=== PATIENT | female | born 1960 | race Caucasian/White ===

== ENCOUNTER → 2016-08-22 | Outpatient (CLI) | payer OTHER ==
[~2016-08-22] VITALS: Ht 149.9 cm; Wt 49.0 kg
[~2016-08-22] MED LIST: ACETAMINOPHEN325 M1 PO; ADVAIR 250-501 EACH INH; ALPRAZOLAM 0.50.5 M1 PO; ALPRAZOLAM 0.50.5 MG PO; ALPRAZOLAM ER1 MG PO; AMARYL4 MG PO; AMBIEN 10 MG TA10 MG PO; AMOXICILLIN875 MG PO; AMOXIL 875 MG875 M1 PO; ASA81BEC PO; AVELOX400 MG PO; AZOR 10-20 MG1 EACH PO; AZOR 5-40 MG T1 EACH PO; BACLOFEN 10 MG10 MG PO; BACLOFEN 10MG T10 M1 PO; BACLOFEN 10MG T10 MG PO; BACLOFEN PO; BAYER CHEWABLE81 MG PO; BENLYSTA120 MG IV; CADUET 5 MG PO; CEFTIN 250 MG250 MG PO; CELEXA 20 MG TA20 MG PO; CELEXA40 MG PO; CELLCEPT 250 M250 M1 PO; CELLCEPT500 MG PO; CHLORZOXAZONE500 MG PO; CIPRO500 MG PO; CIPROFLOXACIN500 M1 PO; CITALOPRAM PO; CITRATE OF MAG296 ML PO; CLONIDINE 2 IT; COLACE 100 MG100 MG PO; COMBIVENT PO; COMBIVENT RESPIM4 GM INH; CYMBALTA30 MG PO; DIFLUCAN100 MG PO; DILAUDID 4 MG TA4 M1 PO; DILAUDID IT; DILAUDID2 MG PO; ERYTHROMYCIN250 MG PO; FEVERALL120 MG PO; FLEXERIL PO; GLUCOPHAGE500 MG PO; INTRATHECAL MED; LASIX 20 MG TAB20 MG PO; LASIX 40 MG TAB40 M2 PO; LASIX 40 MG TAB40 MG PO; LEVEMIR; LEVEMIR SUBQ; LEVEMIR100 UNIT/1 SUBQ; LIDODERM 5%1 PATC1 TRANSDERM; LIORESAL 10 MG10 MG PO; LIPITOR40 MG PO; LIPITOR80 MG PO; MARINOL5 MG PO; METFORMIN HCL500 MG PO; METOLAZONE 2.52.5 MG; MOBIC7.5 MG PO; MORPHINE SULFAT15 M3 PO; MORPHINE SULFAT15 M4 PO; MS CONTIN60 MG PO; NEXIUM40 MG PO; NORTRIPTYLINE H50 M3 PO; NOVOLIN R100 UNIT/1 IJ; NOVOLOG100 UNIT/1 SUBQ; NYSTATIN 1100000 U/M SW&SWALLOW; ONDANSETRON HCL4 M2 PO; ONGLYZA5 MG PO; OPANA5 MG PO; OXCARBAZEPINE150 MG; OXYCODONE HCL 55 MG PO; OXYCODONE HCL15 MG PO; OXYCODONE PO; OXYCODONE-ACET1 EAC2 PO; PAMELOR50 MG PO; PAMELOR75 MG PO; PEPCID40 MG PO; PERCOCET 10-321 EAC1 PO; PERCOCET 10-321 EACH; PERCOCET 10-321 EACH PO; PLAVIX 75 MG TA75 M1 PO; PLAVIX 75 MG TA75 MG PO; PREDNISONE 10 M10 MG PO; PREDNISONE 20 M20 M1 PO; PREDNISONE 5 MG5 M1 PO; PREDNISONE50 MG PO; PRILOSEC40 MG PO; PROAIR HFA8.5 GM IH; PROAIR HFA8.5 GM INH; PROVENTIL INH; REGLAN 10 MG TA10 M1 PO; REMERON45 MG PO; RESTORIL15 MG PO; RESTORIL30 MG; RESTORIL30 MG PO; SYMBICORT160 MCG/4.; TAMIFLU75 MG PO; TOPAMAX 100 MG100 MG PO; TOPAMAX 25 MG T25 M1 PO; TOPIRAMATE 100100 MG PO; TRILEPTAL150 MG PO; TYLENOL325 MG PO; ULTRAM 50MG TAB50 MG PO; VANCOCIN 125 M125 M1 MC; VIIBRYD40 MG PO; VITAMIN D 5050000 I1; VITAMIN D 5050000 I1 PO; VITAMIN D350000 UNIT PO; VOLTAREN GEL 1100 G1 TOP; XANAX 0.5 MG0.5 MG PO; XANAX PO; XOPENEX0.63 MG/3 IH; ZANAFLEX4 MG PO; ZESTRIL10 MG PO; ZETIA10 MG PO; ZOFRAN 4 MG ORAL4 M1 DIS; ZOLOFT 50 MG TA50 M1 PO; hydromorphone INTRATHECA
--- NOTE | ~2016-08-22 | HPC ---
[facility] [place] [place] [address] PAIN MANAGEMENT CONSULTATION Name: MARCELLA ZAVALA Room #: REG DERECK Thorne#: [id number] Admission: 08/22/16 Attend Phys: Edilson Bhatti DO Discharge: Date of : 58 Report #: [id number] THIS REPORT FOR: //name// CC: Mynor Bhatti HISTORY OF PRESENT ILLNESS: The patient is a 55-year-old female well known to the pain clinic. She has been treated with symptomatic lumbar radiculopathy status post decompressive laminectomy, neuropathic pain component, requiring complex medication management for some time. She has had intrathecal pump in place long enough that had to be revised early June of 2016. Returns to the pain clinic today for intrathecal pump renewal and medication management. Again, she is now approximately 7 weeks status post intrathecal pump replacement. Incisions look good, but she is complaining of ongoing abdominal pain at the surgical site. Inspection of the surgical site is extremely unremarkable. There is no swelling, erythema or warmth. Subjectively a little tender to palpation. Vital signs are unremarkable. She is afebrile (modest hypertension 186/77, pulse 76, respirations 16). She is complaining of pain that is a "10" on a 0-10 visual analog scale. Again, chronic low back and abdomen. PHYSICAL EXAMINATION: Shows a 55-year-old female, BMI is 21.8 kilograms per meter squared. Vital signs as noted above. Again inspection of the intrathecal pump site is extremely unremarkable. No ballottable edema, no induration. The surgical incision looks good, no drainage. Has some axial back pain, though palpation to the back shows some tenderness, no discrete trigger points are noted. No muscle spasm is appreciable. The patient rises from a chair easily. Gait is tandem though antalgic. We reviewed the fact that opiate medications are being used to provide analgesia adequate to support activities of daily living, not attempting to achieve a specific pain score on the 0-10 Visual Analog Scale. The current opiate medications are providing sufficient analgesia to allow the patient to participate in activities of daily living. The patient is not exhibiting any aberrant behavior suggestive of drug diversion. The patient is not having any adverse reactions to medications. The patient is not suffering from daytime somnolence or mental acuity changes. The patient is managing opiate-induced constipation with appropriate qkao-rsj-fknmllu agents and dietary considerations. The patient was counseled on concern for caution with operating a motor vehicle while using opiate medications. A physical exam was performed and the patient's functional status was evaluated. All patients with back pain were advised against the bed rest greater than 4 days and were advised to return to normal activities. Pain score assessment was noted and the treatment plan was reviewed with the patient. All current medications, both prescribed and OTC were reviewed and reconciled on the electronic medical record. Tobacco screening was accomplished and smoking [address] [address] PAIN MANAGEMENT CONSULTATION Name: MARCELLA ZAVALA Room #: REG [facility] Mati#: [id number] Admission: 08/22/16 Attend Phys: Edilson Bhatti DO Discharge: Date of : 58 Report #: [id number] cessation was advised when indicated. BMI was noted and diet/exercise modification was recommended for all patients following outside normal parameters. I reviewed with the patient today their responsibilities to safeguard prescription medications, reviewed their responsibility to utilize medications only as prescribed by the physician. They are to seek and receive pain medications only from 1 physician group ( [facility]). They are to use 1 pharmacy and keep the clinic informed if they change pharmacies. Their responsibilities include making followup visits in a timely fashion and to avoid abrupt discontinuation of medication usage. Their responsibilities further include bringing their medications (bottles from the pharmacy with residual pills) to the visit for possible confirmation of pill counts and the patient understands it is their responsibility to submit to random drug screens to ensure both that the medications prescribed are present, and that no other controlled substances are present. All prescriptions provided today were generated electronically. The patient has been using oxycodone 10/325 one tablet 4-5 times a day, limit 135 tablets for 30 days. She did have a prescription generated 2 weeks ago. After discussion with the patient, they have elected to renew prescription, to be released in 2 weeks, we will see her back in 6 weeks. Today, we have elected to increase the intrathecal pump approximately 5% from constant infusion of 8 mg of hydromorphone to 8.4 mg (actually 8.389 mg of hydromorphone a day, clonidine 279.6 mcg a day and bupivacaine 8.39 mg a day). The new intrathecal pump refill date will be 10/25/2016. PROCEDURE NOTE: Intrathecal pump refill. PROCEDURE: After written informed consent was obtained, the patient placed in supine position. Skin overlying the pump was cleansed with ChloraPrep. Skin wheal with Xylocaine was raised. Using a [employer] refill kit, the pump was accessed, aspirated residual contents (approximately 2.9 mL) refilled with 20 mL of new injectate containing hydromorphone 30 mg per mL, clonidine 1000 mcg per mL, and bupivacaine 30 mg per mL. Frequent aspiration showed easy return of the injectate, site was visualized. No changes including swelling or erythema are noted. Discharged in good and stable condition. <ELECTRONICALLY SIGNED> By: Edilson Bhatti DO 08/25/16805 1522 [id number] Edilson Bhatti DO /manda
[2016-08-22 12:33] VITALS: BP 186/77
== END ==
LOC: PAIN 07:24
DX: M54.16 Radiculopathy, lumbar region (principal); G62.9 Polyneuropathy, unspecified; M54.89 Other dorsalgia; F17.210 Nicotine dependence, cigarettes, uncomplicated; F32.9 Major depressive disorder, single episode, unspecified

== ENCOUNTER → 2016-10-23 | Outpatient (CLI) | payer OTHER ==
[~2016-10-23] VITALS: Ht 149.9 cm; Wt 53.1 kg
[2016-10-23 11:08] VITALS: BP 208/78
== END | disposition home or self-care (01) ==
LOC: PAIN 06:41
DX: G89.4 Chronic pain syndrome (principal); M17.11 Unilateral primary osteoarthritis, right knee; M25.561 Pain in right knee; M25.552 Pain in left hip; M54.16 Radiculopathy, lumbar region; I10 Essential (primary) hypertension; F11.20 Opioid dependence, uncomplicated; F17.200 Nicotine dependence, unspecified, uncomplicated; F41.8 Other specified anxiety disorders; Z96.642 Presence of left artificial hip joint; Z98.890 Other specified postprocedural states; Z88.6 Allergy status to analgesic agent; Z79.899 Other long term (current) drug therapy

== ENCOUNTER → 2016-11-20 | Outpatient (CLI) | payer OTHER ==
[~2016-11-20] VITALS: Ht 149.9 cm; Wt 50.1 kg
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
[2016-11-20 11:18] VITALS: BP 197/81
== END | disposition home or self-care (01) ==
LOC: PAIN 07:45
DX: M54.16 Radiculopathy, lumbar region (principal); G89.4 Chronic pain syndrome; F11.20 Opioid dependence, uncomplicated; F17.200 Nicotine dependence, unspecified, uncomplicated; Z88.8 Allergy status to other drugs, medicaments and biological substances; Z79.899 Other long term (current) drug therapy; Z79.4 Long term (current) use of insulin; Z98.890 Other specified postprocedural states

== ENCOUNTER → 2016-12-25 | Outpatient (CLI) | payer OTHER ==
[~2016-12-25] VITALS: Ht 149.9 cm; Wt 48.4 kg
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
[2016-12-25 12:48] VITALS: BP 159/86
== END | disposition home or self-care (01) ==
LOC: PAIN 07:32
DX: G89.4 Chronic pain syndrome (principal); F17.200 Nicotine dependence, unspecified, uncomplicated

== ENCOUNTER → 2017-02-27 | Outpatient (CLI) | payer OTHER ==
[~2017-02-27] VITALS: Ht 149.9 cm; Wt 48.6 kg
[~2017-02-27] MED LIST changes: +FLAGYL500 MG PO; +VOLTAREN GEL 1100 G2 TOP
--- NOTE | ~2017-02-27 | HPC ---
[facility] [address] [place] [address] PAIN MANAGEMENT CONSULTATION Name: MARCELLA ZAVALA Room #: REG DERECK JacksonAgustin#: [id number] Admission: 02/27/17 Attend Phys: Jesus Gonzalez MD Discharge: Date of : 58 Report #: [id number] THIS REPORT FOR: //name// CC: Mynor Bhatti DO DATE OF SERVICE: 02/27/2017 Followup visit to manage intrathecal infusion pump with refill. The patient is a longstanding patient of Dr. Delacruz, who has an intrathecal pump. She had an emergency gallbladder surgery at [facility] and ended up at [facility]. She was intubated following surgery and was on the ventilator for several days until Dr. Pearl was able to extubate her. She left the hospital just today and is here today for a refill of her intrathecal infusion pump. She remains on oxygen at 2 L of nasal cannula. Her pain is across her low back and her left hip and right knee. She has benefitted from the intrathecal medication which is a combination of Dilaudid, clonidine and bupivacaine. Doses will remain the same. Her NELLIE is low and a refill is mandatory this Thursday, so that she does not go into withdrawal this weekend. Her complex past medical history is reviewed from the electronic medical record. Medication list also reviewed. No oral medication is required today. She is on prednisone. PHYSICAL EXAMINATION: She looks frail and sickly. Her blood pressure is 111/61, heart rate is 87, respirations 14, O2 sat is 96%. She is on 2 liters nasal cannula. We her from a bottle and saved some of that for transport home and she was placed on the hospital oxygen. I did not have her get up and move about in the clinic because she appears so frail. She is pleasant, alert and oriented. Does not appear to be overmedicated or have altered mental status. Her chest reveals distant breath stones. IMPRESSION: 1. Chronic low back pain with radiculopathy. She has a history of multiple laminectomies with decompression. 2. Osteoarthritis, right knee. 3. Chronic intractable pain and management of intrathecal infusion pump. RECOMMENDATIONS: I refilled her intrathecal infusion pump today and reprogrammed the same dose. [facility] [address] [place] [address] PAIN MANAGEMENT CONSULTATION Name: MARCELLA ZAVALA [id number] Admission: 02/27/17 Attend Phys: Jesus Gonzalez MD Discharge: Date of : 58 Report #: [id number] PROCEDURE: Skin was prepped with ChloraPrep. Skin anesthetized and a 22-gauge non-coring needle advanced in the pump. Old medication removed and discarded, 2.1 mL volume was expected and we got about 1.8. This was discarded per protocol. The pump was then refilled with 19.5 mL of Dilaudid 30 mg/mL, clonidine 1000 mcg/mL bupivacaine 30 mg/mL. A reprogramming session is Dilaudid 8.3, clonidine 279, bupivacaine 8.3. NELLIE is 72 months. Her low reservoir alarm now is scheduled for 04/30/2017. The patient will return to see Dr. Bhatti. <ELECTRONICALLY SIGNED> By: Jesus Gonzalez MD 03/11/17 1551 1541 1323 Jesus Gonzalez MD /nt
[2017-02-27 14:01] VITALS: BP 111/61
== END | disposition home or self-care (01) ==
LOC: PAIN 02-23 08:13
DX: Z45.1 Encounter for adjustment and management of infusion pump (principal); M54.16 Radiculopathy, lumbar region; G89.29 Other chronic pain; M17.11 Unilateral primary osteoarthritis, right knee; J44.9 Chronic obstructive pulmonary disease, unspecified; F17.200 Nicotine dependence, unspecified, uncomplicated; Z79.891 Long term (current) use of opiate analgesic; Z98.890 Other specified postprocedural states; Z88.6 Allergy status to analgesic agent; Z79.4 Long term (current) use of insulin; Z79.899 Other long term (current) drug therapy; Z90.49 Acquired absence of other specified parts of digestive tract

== ENCOUNTER → 2017-04-30 | Outpatient (CLI) | payer OTHER ==
[~2017-04-30] VITALS: Ht 149.9 cm; Wt 45.4 kg
[~2017-04-30] MED LIST changes: +LEXAPRO 10 MG T10 M2 PO; +REQUIP0.5 MG PO
--- NOTE | ~2017-04-30 | HPC ---
[facility] [place] [address] PAIN MANAGEMENT CONSULTATION Name: MARCELLA ZAVALA Room #: REG DERECK Thorne#: [id number] Admission: 04/30/17 Attend Phys: Edilson Bhatti, Discharge: Date of : 58 Report #: [id number] THIS REPORT FOR: //name// CC: Mynor Bhatti DATE OF SERVICE: 04/30/2017 The patient is a 56-year-old female being treated for lumbar radiculopathy status post decompressive laminectomy, osteoarthritis affecting knees, right greater than left, chronic pain syndrome requiring high risk complex medication management with an intrathecal pump. Presents to pain clinic today for intrathecal pump refill. She was also seen for a complex medication management. She uses Percocet 10/325 one tablet 4-5 times a day, limit 135 tablets for 30 days. She returns to pain clinic today. She had been quite sick, she was actually seen for last refill 02/27/2017 by my partner, Dr. Jesus Gonzalez. She had prior been in the hospital requiring intubation. She still remains fairly frail, but is improving. She states over the holidays, she spent a good deal of time with her grandchildren and played pool with her granddaughter and is being a little more functional overall. Today, intrathecal pump was refilled. No programming changes were made. We reviewed the fact that opiate medications are being used to provide analgesia adequate to support activities of daily living, not attempting to achieve a specific pain score on the 0-10 Visual Analog Scale. The current opiate medications are providing sufficient analgesia to allow the patient to participate in activities of daily living. The patient is not exhibiting any aberrant behavior suggestive of drug diversion. The patient is not having any adverse reactions to medications. The patient is not suffering from daytime somnolence or mental acuity changes. The patient is managing opiate-induced constipation with appropriate invz-gic-gvfhaep agents and dietary considerations. The patient was counseled on concern for caution with operating a motor vehicle while using opiate medications. A physical exam was performed and the patient's functional status was evaluated. All patients with back pain were advised against the bed rest greater than 4 days and were advised to return to normal activities. Pain score assessment was noted and the treatment plan was reviewed with the patient. All current medications, both prescribed and OTC were reviewed and reconciled on the electronic medical record. Tobacco screening was accomplished and smoking cessation was advised when indicated. BMI was noted and diet/exercise modification was recommended for all patients following outside normal parameters. I reviewed with the patient [place] [address] PAIN MANAGEMENT CONSULTATION Name: MARCELLA ZAVALA Room #: REG DERECK Thorne#: [id number] Admission: 04/30/17 Attend Phys: Edilson Bhatti DO Discharge: Date of : 58 Report #: [id number] prescription medications, reviewed their responsibility to utilize medications only as prescribed by the physician. They are to seek and receive pain medications only from 1 physician group ([facility]). They are to use 1 pharmacy and keep the clinic informed if they change pharmacies. Their responsibilities include making followup visits in a timely fashion and to avoid abrupt discontinuation of medication usage. Their responsibilities further include bringing their medications (bottles from the pharmacy with residual pills) to the visit for possible confirmation of pill counts and the patient understands it is their responsibility to submit to random drug screens to ensure both that the medications prescribed are present, and that no other controlled substances are present. All prescriptions provided today were generated electronically. PHYSICAL EXAMINATION: Notes a frail 56-year-old female, BMI is approximately 19 kilograms per meter squared. Alert and oriented to person, place and time, judged to be a reasonable historian. Lower extremity strength is diminished, but symmetric. She is overall deconditioned, but her spirits are up and she appears a little more alert and oriented and positive she has in some time. ASSESSMENT: Symptomatic lumbar radiculopathy status post decompressive laminectomy, osteoarthritis affecting right greater than left knee, axial back pain, chronic pain syndrome requiring high risk complex medication management. RECOMMENDATIONS: Renew Percocet 10/325 one tablet 4-5 times a day, limit 135 tablets for 30 days. I have taken the liberty of writing for 2 months of current medication. PROCEDURE NOTE: RN refill of ITP. DESCRIPTION OF PROCEDURE: After written informed consent was obtained, the area overlying the pump was cleansed with ChloraPrep. Skin wheal with Xylocaine was raised. A [employer] refill kit was used to access the pump of residual contents and refill. A 20 mL of new injectate, hydromorphone 30 mg per mL, bupivacaine 30 mg per mL and clonidine 1000 mcg per mL. The pump was reprogrammed to deliver the baseline infusate at 8.3 mg of both hydromorphone and bupivacaine along with 279 mcg of clonidine a day. Frequent aspiration showed easy return of injectate. Needle was removed, area was cleansed, Band-Aids applied. The patient monitored for an appropriate period of time, discharged in good and stable condition. RECOMMENDATION: Follow up in 2 months for medication management. Pump refill is in approximately 90 days. <ELECTRONICALLY SIGNED> By: Edilson Bhatti DO 05/01/17 0810 1429 1813 Edilson Bhatti DO /manda
[2017-04-30 12:57] VITALS: BP 156/69
== END | disposition home or self-care (01) ==
LOC: PAIN 07:10
DX: M54.16 Radiculopathy, lumbar region (principal); M17.0 Bilateral primary osteoarthritis of knee; G89.4 Chronic pain syndrome; Z98.890 Other specified postprocedural states; Z79.891 Long term (current) use of opiate analgesic; Z87.891 Personal history of nicotine dependence; Z88.6 Allergy status to analgesic agent; Z79.4 Long term (current) use of insulin; Z79.899 Other long term (current) drug therapy

== ENCOUNTER → 2017-07-03 | Outpatient (CLI) | payer OTHER ==
[~2017-07-03] VITALS: Ht 149.9 cm; Wt 49.0 kg
--- NOTE | ~2017-07-03 | HPC ---
[facility] [place] [address] PAIN MANAGEMENT CONSULTATION Name: MARCELLA ZAVALA Room #: REG GARFIELDMeena Thorne#: [id number] Admission: 07/03/17 Attend Phys: Edilson Bhatti DO Discharge: Date of : 58 Report #: [id number] THIS REPORT FOR: //name// CC: Mynor Bhatti HISTORY OF PRESENT ILLNESS: The patient is a 56-year-old female, long known to pain clinic, being treated for lumbar radiculopathy status post decompressive laminectomy, chronic pain syndrome requiring complex medication management, right knee DJD and intrathecal pump. The patient is a complex medication management patient and has an opiate consent to treat contract. She was last seen in the pain clinic on 04/30/2017. Pump was refilled at that time. She returns to pain clinic today. She is having increasing pain in her right knee, does have a little ballottable edema there. I had prior done arthrocentesis of that knee. Today, she presents to pain clinic for intrathecal pump refill. We also had an office visit reviewing chronic pain management issues and the recurrent right knee pain. We reviewed the fact that opiate medications are being used to provide analgesia adequate to support activities of daily living, not attempting to achieve a specific pain score on the 0-10 Visual Analog Scale. The current opiate medications are providing sufficient analgesia to allow the patient to participate in activities of daily living. The patient is not exhibiting any aberrant behavior suggestive of drug diversion. The patient is not having any adverse reactions to medications. The patient is not suffering from daytime somnolence or mental acuity changes. The patient is managing opiate-induced constipation with appropriate lqxm-tvd-jcxwhuy agents and dietary considerations. The patient was counseled on concern for caution with operating a motor vehicle while using opiate medications. A physical exam was performed and the patient's functional status was evaluated. All patients with back pain were advised against the bed rest greater than 4 days and were advised to return to normal activities. Pain score assessment was noted and the treatment plan was reviewed with the patient. All current medications, both prescribed and OTC were reviewed and reconciled on the electronic medical record. Tobacco screening was accomplished and smoking cessation was advised when indicated. BMI was noted and diet/exercise modification was recommended for all patients following outside normal parameters. I reviewed with the patient today their responsibilities to safeguard prescription medications, reviewed their responsibility to utilize medications [address] [address] PAIN MANAGEMENT CONSULTATION Name: MARCELLA ZAVALAN Room #: REG DERECK Thorne#: [id number] Admission: 07/03/17 Attend Phys: Edilson Bhatti DO Discharge: Date of : 58 Report #: [id number] only as prescribed by the physician. They are to seek and receive pain medications only from 1 physician group ([facility]). They are to use 1 pharmacy and keep the clinic informed if they change pharmacies. Their responsibilities include making followup visits in a timely fashion and to avoid abrupt discontinuation of medication usage. Their responsibilities further include bringing their medications (bottles from the pharmacy with residual pills) to the visit for possible confirmation of pill counts and the patient understands it is their responsibility to submit to random drug screens to ensure both that the medications prescribed are present, and that no other controlled substances are present. All prescriptions provided today were generated electronically. The patient notes pain score is 9 on a VAS. She uses a cane for balance, has not fallen in the last 3 months. Her opiate consent to treat contract was signed on 10/15/2015. She scores moderate risk on the opiate risk assessment tool. She screened positive for THC 6 months ago. She was counseled regarding same. Functional assessment tool score is 43/70. The patient has resumed smoking, she had quit for several years. She was counseled regarding this as well. She rises from the chair using armrest, markedly antalgic gait. There is a little ballottable edema in the right knee. She is having little tenderness at the intrathecal pump site, although she is wearing fairly low-waist trousers that rub across the site. I suggested she try a different garment that might not have elastic over the pump proper. ASSESSMENT: 1. Symptomatic right knee degenerative joint disease with ballotable edema. 2. Axial back pain requiring complex medication management, lumbar radiculopathy status post decompressive laminectomy, chronic pain syndrome requiring complex medication management. RECOMMENDATION: Renew Percocet 10/325 one tablet 4-5 times a day, limit 135 tablets for 30 days. Follow up in 2 months for reevaluation. We will get a buccal swab at next visit. It appears that there has not been a followup since the last one. She was counseled regarding marijuana use, it should be negative. INTRATHECAL PUMP REFILL: The pump was refilled by the RN today using our protocol and the [employer] refill kit. Pump was refilled with 20 mL of injectate with bupivacaine 30 mg per mL, clonidine 1000 mcg per mL, and hydromorphone 30 mg per mL. Infusion rate is 8.389 mg of Dilaudid a day, 279.6 mcg of clonidine and 8.389 mg of bupivacaine, a day. Her new reservoir date is now 09/05/2017. This was done under my direct supervision. The pump was reprogrammed to deliver the current rate. We will plan on seeing the patient [address] [address] PAIN MANAGEMENT CONSULTATION Name: LUCASMARCELLA JERRYN Room #: [facility] DERECK Thorne#: [id number] Admission: 07/03/17 Attend Phys: Edilson Bhatti DO Discharge: Date of : 58 Report #: [id number] next week for right knee arthroscopy arthrocentesis if pain continues to be problematic. <ELECTRONICALLY SIGNED> By: Edilson Bhatti DO 07/09/17 0938 1515 03 Edilson Bhatti DO /nt
[2017-07-03 12:49] VITALS: BP 183/83
== END | disposition home or self-care (01) ==
LOC: PAIN 07:08
DX: Z45.1 Encounter for adjustment and management of infusion pump (principal); Z98.890 Other specified postprocedural states; G89.4 Chronic pain syndrome; M17.0 Bilateral primary osteoarthritis of knee; M54.16 Radiculopathy, lumbar region; Z79.899 Other long term (current) drug therapy

== ENCOUNTER → 2017-09-03 | Outpatient (CLI) | payer OTHER ==
[~2017-09-03] VITALS: Ht 149.9 cm; Wt 51.7 kg
--- NOTE | ~2017-09-03 | HPC ---
[facility] [address] [place] [place] [address] PAIN MANAGEMENT CONSULTATION Name: MARCELLA ZAVALA Room #: REG DERECK Thorne#: [id number] Admission: 09/03/17 Attend Phys: Edilson Bhatti, DO Discharge: Date of : 58 Report #: [id number] THIS REPORT FOR: //name// CC: Mynor Bhatti DATE OF SERVICE: 09/03/2017 The patient is a very pleasant 56-year-old female being treated for chronic pain syndrome, lumbar radiculopathy, status post decompressive laminectomy, DJD affecting multiple joints including knees and hips (status post left total knee arthroplasty) requiring complex medication management and intrathecal pump management. Last seen in pain clinic 07/03/2017. Continued on her intrathecal pump, which delivers hydromorphone 8.39 mg, clonidine 276 mcg and bupivacaine 8.39 mg per day. At last visit, she did have some ballottable edema in the right knee. We continued some topical Voltaren gel and p.r.n. Percocet 10/325 typically 1 tablet 4-5 times a day, limit 135 tablets for 20 days. The patient returns to pain clinic today noting pain is a "10" on VAS. This is the usual score for the patient. She continues to use some tobacco products, was counseled regarding same. Fortunately, her knee is actually significantly improved, edema is fairly minimal here. She does have some pain in the right hip. Status post left total hip arthroplasty. She states her right hip is "bone on bone." PHYSICAL EXAMINATION: Vital signs as noted in the EMR. Rises from chair using armrest, modestly antalgic gait, though generally tandem. Again, really negligible edema in the bilateral knees. Passive rotation of the right hip has nominal pain with rotation. Does have some pain over the trochanteric bursa. With no discrete trigger points noted and concern for this 56-year-old female with some limb cachexia (she does have some centripetal obesity), postmenopausal chronic smoker with osteoporosis, I told her I would be very cautious about further steroid injections. Suggested she follow up with the orthopedist who had done her contralateral (left) total hip arthroplasty to evaluate the right hip. We reviewed the fact that opiate medications are being used to provide analgesia adequate to support activities of daily living, not attempting to achieve a specific pain score on the 0-10 Visual Analog Scale. The current opiate medications are providing sufficient analgesia to allow the patient to participate in activities of daily living. The patient is not exhibiting any aberrant behavior suggestive of drug diversion. The patient is not having any adverse reactions to medications. The patient is not suffering from daytime somnolence or mental acuity changes. The [place] [address] PAIN MANAGEMENT CONSULTATION Name: LUCASMARCELLA ERICA Room #: REG DERECK Thorne#: [id number] Admission: 09/03/17 Attend Phys: Edilson Bhatti DO Discharge: Date of : 58 Report #: [id number] constipation with appropriate tbsg-vmz-doesdss agents and dietary considerations. The patient was counseled on concern for caution with operating a motor vehicle while using opiate medications. A physical exam was performed and the patient's functional status was evaluated. All patients with back pain were advised against the bed rest greater than 4 days and were advised to return to normal activities. Pain score assessment was noted and the treatment plan was reviewed with the patient. All current medications, both prescribed and OTC were reviewed and reconciled on the electronic medical record. Tobacco screening was accomplished and smoking cessation was advised when indicated. BMI was noted and diet/exercise modification was recommended for all patients following outside normal parameters. I reviewed with the patient today their responsibilities to safeguard prescription medications, reviewed their responsibility to utilize medications only as prescribed by the physician. They are to seek and receive pain medications only from 1 physician group ( [facility]). They are to use 1 pharmacy and keep the clinic informed if they change pharmacies. Their responsibilities include making followup visits in a timely fashion and to avoid abrupt discontinuation of medication usage. Their responsibilities further include bringing their medications (bottles from the pharmacy with residual pills) to the visit for possible confirmation of pill counts and the patient understands it is their responsibility to submit to random drug screens to ensure both that the medications prescribed are present, and that no other controlled substances are present. All prescriptions provided today were generated electronically. Today, I did renew the patient's Percocet 10/325 directions 1 tablet 4-5 times a day, limit 135 tablets for 30 days. I gave her 2 prescriptions, 1 released today, 1 released in 4 weeks. Intrathecal pump refill. Pump was refilled by nurse, Carmenza Montgomery RN under my direction using sterile procedure and the [employer] refill kit. The pump was refilled with 20 mL of injectate containing hydromorphone, clonidine and bupivacaine. Her new refill date is 11/23/2017. No change was made in the infusate rate. The patient was discharged in good and stable condition. Follow up as needed for medication management. Given that she is one of the few intrathecal pump patients that I have, I will have her either follow up with Dr. Jesus Gonzalez or Dr. Nazario Steel for ongoing care of the intrathecal pump. [address] [address] PAIN MANAGEMENT CONSULTATION Name: MARCELLA ZAVALA Room #: REG [facility].#: [id number] Admission: 09/03/17 Attend Phys: Edilson Bhatti DO Discharge: Date of : 58 Report #: [id number] Discharged in good and stable condition. <ELECTRONICALLY SIGNED> By: Edilson Bhatti DO 09/07/17 0711 1320 55 Edilson Bhatti DO /nt
[2017-09-03 12:42] VITALS: BP 140/81
== END | disposition home or self-care (01) ==
LOC: PAIN 05:41
DX: Z45.1 Encounter for adjustment and management of infusion pump (principal); G89.4 Chronic pain syndrome; M54.16 Radiculopathy, lumbar region; M19.90 Unspecified osteoarthritis, unspecified site; F17.210 Nicotine dependence, cigarettes, uncomplicated; Z98.890 Other specified postprocedural states; Z79.891 Long term (current) use of opiate analgesic; Z88.8 Allergy status to other drugs, medicaments and biological substances; Z79.899 Other long term (current) drug therapy; Z79.4 Long term (current) use of insulin

== ENCOUNTER → 2017-11-06 | Outpatient (CLI) | payer OTHER ==
[~2017-11-06] VITALS: Ht 149.9 cm; Wt 48.8 kg
--- NOTE | ~2017-11-06 | HPC ---
[facility] [place] [address] PAIN MANAGEMENT CONSULTATION Name: MARCELLA ZAVALA Room #: REG DERECK Mati#: [id number] Admission: 11/06/17 Attend Phys: Edilson Bhatti DO Discharge: Date of : 58 Report #: [id number] THIS REPORT FOR: //name// CC: Mynor Bhatti HISTORY OF PRESENT ILLNESS: The patient is a pleasant 56-year-old female, long treated for chronic pain syndrome, status post decompressive lumbar laminectomy, DJD affecting bilateral hips and knees, status post left total knee arthroplasty, requiring complex medication management and intrathecal pump. The patient was last seen in the pain clinic 09/03/2017. She returns to pain clinic today for scheduled intrathecal pump refill. This was accomplished by nurse Jolley. The patient is requesting renewal of her p.r.n. medication. She used to take Percocet 10/325 one tablet 4-5 times a day, limit 135 tablets for 30 days. Today, she notes subjective pain score 9 on a VAS, which is fairly consistent for the patient. She complains of pain, back, right hip, and knee. Notes "everything" exacerbates pain. The patient continues to smoke, she is down to about half a pack a day. She was counseled regarding same. She is fairly sedentary. Weight is stable, BMI is 21.7 kg/m2. Vital signs are otherwise stable. Alert and oriented to person, place and time, judged to be a reasonable historian. Rises from chair using armrest, modestly antalgic gait, diffuse tenderness across the low back. Occasionally uses a cane for balance. She has not fallen in the last months. ASSESSMENT: Symptomatic chronic axial back pain, lumbar radiculopathy, status post decompressive laminectomy, failed back syndrome, osteoarthritis affecting hips and knees, requiring intrathecal pump management and chronic pain management. RECOMMENDATION: Renew Percocet , limit 135 tablets for 30 days. I have taken the liberty of writing for 2 months of medication. Intrathecal pump refill by RN, supervised by myself. Pump was refilled in a sterile fashion using the usual protocol by the pain clinic nurse. Refilled with 20 mL of new injectate, containing bupivacaine 30 mg per mL, hydromorphone 30 mg per mL, clonidine 1000 mcg per mL. Pump was reprogrammed to deliver current rate of 8.389 mg of Dilaudid a day, 8.389 mg of [facility] [address] [place] [address] PAIN MANAGEMENT CONSULTATION Name: MARCELLA ZAVALA Room #: REG CL Mati#: [id number] Admission: 11/06/17 Attend Phys: Edilson Bhatti DO Discharge: Date of : 58 Report #: [id number] bupivacaine a day, and 279.6 mcg of clonidine a day. New refill date is 01/09/2018. Discharged in good and stable condition. <ELECTRONICALLY SIGNED> By: Edilson Bhatti DO 11/08/17 1135 1453 [id number] Edilson Bhatti DO /nt
[2017-11-06 12:46] VITALS: BP 138/76
== END | disposition home or self-care (01) ==
LOC: PAIN 08:33
DX: Z45.1 Encounter for adjustment and management of infusion pump (principal); G89.29 Other chronic pain; M54.16 Radiculopathy, lumbar region; Z98.890 Other specified postprocedural states; M16.0 Bilateral primary osteoarthritis of hip; M17.0 Bilateral primary osteoarthritis of knee; Z79.899 Other long term (current) drug therapy; F17.210 Nicotine dependence, cigarettes, uncomplicated

== ENCOUNTER → 2018-03-01 | Outpatient (CLI) | payer OTHER ==
[~2018-03-01] VITALS: Ht 149.9 cm; Wt 48.9 kg
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
[2018-03-01 14:24] VITALS: BP 148/82
== END | disposition home or self-care (01) ==
LOC: PAIN 06:59
DX: Z45.1 Encounter for adjustment and management of infusion pump (principal); G89.29 Other chronic pain; M96.1 Postlaminectomy syndrome, not elsewhere classified; M17.10 Unilateral primary osteoarthritis, unspecified knee; M32.9 Systemic lupus erythematosus, unspecified; M54.16 Radiculopathy, lumbar region; F17.210 Nicotine dependence, cigarettes, uncomplicated; Z88.8 Allergy status to other drugs, medicaments and biological substances; Z79.899 Other long term (current) drug therapy; Z98.890 Other specified postprocedural states; Z79.84 Long term (current) use of oral hypoglycemic drugs; Z79.4 Long term (current) use of insulin

== ENCOUNTER → 2018-04-30 | Outpatient (CLI) | payer OTHER ==
[~2018-04-30] VITALS: Ht 149.9 cm; Wt 54.7 kg
--- NOTE | ~2018-04-30 | HPC ---
[facility] [address] [place] [address] PAIN MANAGEMENT CONSULTATION Name: MARCELLA ZAVALA Room #: PRE [facility] M.R.#: [id number] Admission: Attend Phys: Juaquin Guthrie MD Discharge: Date of : 58 Report #: [id number] THIS REPORT FOR: //name// CC: Mynor Guthrie DATE OF SERVICE: 04/30/2018 CHIEF COMPLAINT: "I have run out of my medications I have got 4 tablets left." HISTORY: The patient is a 57-year-old female who has been followed in the pain clinic because of chronic pain. She suffered from lumbar radiculopathy and is being managed and helped with pain control using intrathecal pump. She has somewhat complicated history. The patient called today indicating that she is out of medications. She only has four tablets left. Her next scheduled appointment is about 1 week away. The patient is on a regimen of intrathecal medications. ALLERGIES: ASPIRIN. MEDICATIONS: Oxycodone 10/325 one p.o. 4 tablets daily, Lexapro 10 mg daily, Requip at bedtime, Voltaren gel, Glucophage 100 mg b.i.d., insulin, various sliding scale dose, Symbicort daily, Zetia 10 mg, albuterol as needed, lisinopril 10 mg at bedtime, Pamelor at bedtime, Combivent inhaler daily, Xanax 0.5 mg 4 times daily, Prilosec 4 mg, Ambien 10 mg at bedtime, Lipitor 80 mg, prednisone 10 mg daily. PAIN CLINIC ASSESSMENT/PQRS: 1. History of osteoarthritis with left hip replacement. The patient has some right hip problems as well. The patient states she has been treated for rheumatoid arthritis or by Dr. Cesar. Has systemic lupus, erythematosus. 2. Vital signs: Blood pressure 171/79, heart rate 100, respiratory rate 16, room air saturation 95%. 3. Pain intensity /10. 4. Fall risk. The patient has not fallen in the last 3 months. 5. Blood thinner. The patient is not on a blood thinning medication. 6. Hypertension. The patient has been treated for hypertension. 7. Opioids greater than 6 weeks. The patient is receiving medication from the Pain Clinic for her medication. 8. Risk assessment tool for moderate for opioid use. 9. Functional assessment tool . 10. Recreational drug use. The patient denies use of recreational drugs. 11. Tobacco: The patient smokes 3/4 pack of cigarettes per day, has smoked for last 36 years. We discussed the risks and benefits of tobacco use. We discussed smoking cessation. 12. Alcohol. The patient denies use of alcoholic beverages. [address] [address] PAIN MANAGEMENT CONSULTATION Name: MARCELLA ZAVALA Room #: PRE DERECK Thorne#: [id number] Admission: Attend Phys: Juaquin Guthrie MD Discharge: Date of : 58 Report #: [id number] PHYSICAL EXAMINATION: GENERAL: The patient is a white female. Appears somewhat older than her stated age. She is alert and oriented x 3. Affect is appropriate. Speech is fluent. HEENT: Normocephalic, atraumatic. Extraocular eye muscles intact. Sclerae nonicteric. Mucous membranes moist. NECK: Without adenopathy. EXTREMITIES: Upper extremity muscle strength 4+/5 for the upper extremity. Lower extremity muscle strength is judged to be 4+/5 for the major muscle groups in the lower extremity. The patient complains of pain in her right and left hip. ABDOMEN: Nontender. IMPRESSION: 1. Chronic pain treated with complex medical regimen. 2. The patient is followed by Psychiatry 3. History of intrathecal pump. 4. Osteoarthritis affecting the joints, hips and knees. 5. Systemic lupus erythematosus. 6. Management of medications, which are high risk. RECOMMENDATIONS: We discussed treatment options with the patient. We had the patient again reviewed the opioid contract. We explained to the patient that she should read and we did outline section 6 this can entails when medications can be written. The reason for rewriting the medications. I explained to the patient that it seems in the past. She has had a number of times where she ran out of her medications and we needed to refill them. We asked that she stay ahead of the curve. If she feels that her medications are about to run out she should inform the Pain Clinic prior to an emergent situation and developing. We explained to her that if she continued to have problems keeping up with her medications. It might be that these medications are not a good way to treat her over the long-term. A script for her medications 7 days' worth of Percocet 10/325 one p.o. q.i.d. has been written. The patient will follow up in the near future with Dr. Jesus Gonzalez. By: [id number] 0179 Juaquin Guthrie MD /nt
--- NOTE | ~2018-04-30 | HPC ---
[facility] [address] [address] PAIN MANAGEMENT CONSULTATION Name: MARCELLA ZAVALA Room #: REG DERECK JacksonAgustin#: [id number] Admission: 04/30/18 Attend Phys: Juaquin Guthrie MD Discharge: Date of : 58 Report #: [id number] THIS REPORT FOR: //name// CC: Mynor Guthrie DATE OF SERVICE: 05/06/2018 CHIEF COMPLAINT: Followup visit for chronic back pain, hip pain and diffuse osteoarthritis. Post-laminectomy syndrome, failed back syndrome. Management of intrathecal infusion pump and high risk medications. The patient returns to pain clinic today. Apparently, there was some confusion about her medication. She was made to come to the clinic on 04/30/2018 and was given a short bridge prescription. She is on an opioid agreement. We provided with monthly medication in addition to her intrathecal infusion pump. She is allowed 135 oxycodone 10/325 tablets taking somewhere between 4 and 5 tablets a day. This has been well established for many years by Dr. Bhatti and she has shown no misuse or abuse. We have done buccal drug testing and have routinely checked the prescription drug monitoring programs to make sure that there have been no unexpected entries. In the recent opioid crisis, there is much more restriction on the provisional medications and patients must be exceptionally cautious with their medication to make sure that there is no diversion. I discussed this with her. I reviewed her records dating back to 2008 when she was first referred to our clinic by Dr. Cesar. This was before she had her intrathecal infusion pump. At that time, she was on 240 morphine milligram equivalents. She has now reduced that by 75% to still 50-60 MME. This is relatively high dose and would like to continue to lower her reliance on oral opioids if possible. She is quite debilitated. She has COPD and is on oxygen. She continues to smoke as does her . They both admit that smoking has aged them and the patient, physician and staff all agreed that they appear much older than their stated age. She is only 57. Their activities are limited by their severe chronic illnesses. MEDICATIONS: Reviewed and reconciled. She is on Lexapro, Requip, Voltaren gel, Glucophage, insulin, Symbicort, Zetia, albuterol, lisinopril, Pamelor, Combivent, Prilosec, Ambien, Lipitor, prednisone and she has been on alprazolam as well chronically for anxiety. We have discussed the interaction between opioids, benzodiazepines which she has been able to tolerate. There have been [address] [address] PAIN MANAGEMENT CONSULTATION Name: MARCELLA ZAVALA Room #: REG [facility] Mati#: [id number] Admission: 04/30/18 Attend Phys: Juaquin Guthrie MD Discharge: Date of : 58 Report #: [id number] no overdose events that we are aware of. PHYSICAL EXAMINATION: GENERAL: She is a 57-year-old who appears much older than her stated age. She has cushingoid features from steroid use. VITAL SIGNS: Her blood pressure 152/66, heart rate 108, respirations 14, O2 sats 97 on room air. BMI is 24.2. She can move independently from sitting to standing position, walks with antalgic features. CHEST: Demonstrates distant breath sounds. CARDIAC: Rhythm was regular. ABDOMEN: Soft. EXTREMITIES: Examination of the spine reveals scar and tenderness. Pump is in the left lower quadrant, mildly tender. Legs are free of edema. Peripheral pulses are not palpable. IMPRESSION: 1. Chronic intractable pain with multiple pain generators including low back, multiple joint osteoarthritis and debility. 2. Chronic obstructive pulmonary disease. 3. Hypertension. 4. Failed back syndrome. 5. Coronary artery disease. 6. Peripheral vascular disease. 7. History of anxiety and depression, on medication. 8. Rheumatoid arthritis. 9. Fibromyalgia. 10. Management of intrathecal infusion pump. PROCEDURE: Refill and reprogramming of intrathecal pump. Skin was prepped with ChloraPrep. Skin anesthetized and a 22-gauge non-coring needle advanced in the pump and old medication removed and discarded per protocol. Pump was refilled with hydromorphone, bupivacaine, clonidine combination. Her discharge dose will be hydromorphone 7.8, clonidine 260, bupivacaine 7.8 mg. Her NELLIE is 59 months. Pump refill will be scheduled for 07/12/2018. I would like to see her back by 07/04/2018. We are managing her medications with 2-month intervals. Buccal testing was performed today and we will review the results of that testing at her next visit. She promised me that she safeguards her medication carefully. [address] [address] PAIN MANAGEMENT CONSULTATION Name: MARCELLA ZAVALA Room #: REG Meena Thorne#: [id number] Admission: 04/30/18 Attend Phys: Juaquin Guthrie MD Discharge: Date of : 58 Report #: [id number] Complex medication followup visit along with pump refill and reprogramming of intrathecal pump. By: [id number] Jesus Gonzalez MD /nt
[2018-04-30 14:20] VITALS: BP 171/79
--- NOTE | 2018-04-30 14:22 | NUR ---
Pain Clinic Assessment: 1. History of Osteoarthritis: Right Lower Extremity History of Rheumatoid Arthritis: N 2. Height: 4 ft. 11 in. 149.9 cm. Weight: 120.0 lb. oz. 54.432 kg. Patient's BMI: 24.2 3. Vital Signs: BP: 171/79 Pulse: 100 Resp: 16 Temp: 02 Sat: 95 ECG Mon: 4. Pain Intensity: 10 5. Fall Risk: Dizziness: N Needs help standing or walking: N Fallen in the last 3 months: Y Fall risk comments: 6. Patient on Blood Thinner: None 7. History of Hypertension: Y 8. Opioid Therapy greater than 6 weeks: Y Opiate Contract Signed: 10/15/15 9. Risk Assessment Tool Provided: 4-MOD RISK 10. Functional Assessment Tool: 11. Recreational Drug Use: Never Drug Type: Tobacco Use: Current Every Day Smoker Tobacco Type: Amount or Packs/day: How Many Years: Alcohol Use: No Frequency: Quant:
[2018-05-06 13:05] VITALS: BP 152/66
== END ==
LOC: PAIN 09:00
DX: M54.16 Radiculopathy, lumbar region (principal); G89.29 Other chronic pain; M96.1 Postlaminectomy syndrome, not elsewhere classified; M17.0 Bilateral primary osteoarthritis of knee; M16.0 Bilateral primary osteoarthritis of hip; M06.9 Rheumatoid arthritis, unspecified; M79.7 Fibromyalgia; M32.9 Systemic lupus erythematosus, unspecified; J44.9 Chronic obstructive pulmonary disease, unspecified; I10 Essential (primary) hypertension; I25.10 Atherosclerotic heart disease of native coronary artery without angina pectoris; I73.9 Peripheral vascular disease, unspecified; F32.9 Major depressive disorder, single episode, unspecified; F41.9 Anxiety disorder, unspecified; Z79.899 Other long term (current) drug therapy; Z97.8 Presence of other specified devices

== ENCOUNTER → 2018-05-06 | Outpatient (CLI) | payer OTHER ==
[~2018-05-06] VITALS: Ht 149.9 cm; Wt 54.4 kg
[2018-05-06 13:38] VITALS: BP 152/66
--- NOTE | 2018-05-06 13:41 | NUR ---
Pain Clinic Assessment: 1. History of Osteoarthritis: Right Lower Extremity History of Rheumatoid Arthritis: N 2. Height: 4 ft. 11 in. 149.9 cm. Weight: 120.0 lb. oz. 54.432 kg. Patient's BMI: 24.2 3. Vital Signs: BP: 152/66 Pulse: 108 Resp: 14 Temp: 02 Sat: 97 ECG Mon: 4. Pain Intensity: 9 5. Fall Risk: Dizziness: N Needs help standing or walking: N Fallen in the last 3 months: N Fall risk comments: 6. Patient on Blood Thinner: None 7. History of Hypertension: Y 8. Opioid Therapy greater than 6 weeks: Y Opiate Contract Signed: 10/15/15 9. Risk Assessment Tool Provided: 4-MOD RISK 10. Functional Assessment Tool: 11. Recreational Drug Use: Never Drug Type: Tobacco Use: Current Every Day Smoker Tobacco Type: Amount or Packs/day: How Many Years: Alcohol Use: No Frequency: Quant:
== END | disposition home or self-care (01) ==
LOC: PAIN 13:29
DX: Z45.1 Encounter for adjustment and management of infusion pump (principal); F17.210 Nicotine dependence, cigarettes, uncomplicated; Z88.8 Allergy status to other drugs, medicaments and biological substances; Z79.899 Other long term (current) drug therapy; Z79.84 Long term (current) use of oral hypoglycemic drugs

== ENCOUNTER 2018-06-21 14:29 | Emergency (ER) | payer OTHER ==
[~2018-06-21] VITALS: Ht 121.9 cm; Wt 54.4 kg
[~2018-06-21 14:29] MED LIST changes: -LEVEMIR
[2018-06-21 14:32] VITALS: BP 67/44
[2018-06-21 15:14] LABS: HEMATOCRIT 41.3 % (37.0-47.0); HEMOGLOBIN 13.1 gm/dL (12.0-15.0); MCH 29.7 pg (26.0-34.0); MCHC 31.6 g/dL (28.0-37.0); PLATELET COUNT 305 thou/uL (150-400); RBC 4.39 mil/uL (4.20-5.00); RDW 15.4 % (10.5-14.5); WBC 14.9 thou/uL (4.0-11.0)
[2018-06-21 15:23] LABS: ANION GAP 8 mmol/L (7-16); BUN 14 mg/dL (7-18); CALCIUM 8.2 mg/dL (8.5-10.1); CHLORIDE 100 mmol/L (98-107); CO2 28 mmol/L (21-32); GLUCOSE 162 mg/dL (74-106); POTASSIUM 4.3 mmol/L (3.5-5.1); SODIUM 136 mmol/L (136-145)
[2018-06-21] MEDS ORDERED: XANAX 0.5 MG0.5 MG PO ×2 (15:31)
[2018-06-21 15:32] LABS: ALBUMIN 2.4 g/dL (3.4-5.0); SGOT 31 U/L (15-37); SGPT 19 U/L (30-65); TOTAL BILIRUBIN 0.6 mg/dL (<0.1-1.0); TOTAL PROTEIN 5.8 g/dL (6.4-8.2); TROPONIN-I <0.06 ng/mL (<0.06)
[2018-06-21] MEDS ORDERED: ZYPREXA 5 MG TAB5 MG PO ×2 (15:35)
[2018-06-21] MEDS ORDERED: PROTONIX40 M2 PO ×2 (15:35)
[2018-06-21 15:36] LABS: ABSOLUTE NEUTROPHILS 9.7 thou/uL (1.4-8.2); ANISOCYTOSIS 1+; NUCLEATED RBCS 1 /100WBC; PLATELET ESTIMATE NORMAL; POLYCHROMASIA SLIGHT
[2018-06-21] MEDS ORDERED: PAIN PUMP ×2 (15:38)
[2018-06-21 15:40] LABS: URINE BILIRUBIN NEGATIVE (Negative); URINE BLOOD NEGATIVE (Negative); URINE CLARITY CLEAR; URINE COLOR YELLOW; URINE GLUCOSE-RANDOM* NEGATIVE (Negative); URINE KETONES 1+ (Negative); URINE PROTEIN (DIPSTICK) NEGATIVE (Negative); URINE SPECIFIC GRAVITY >= 1.030 (1.005-1.035); URINE UROBILINOGEN 0.2 E.U./dl (0.2-1.0)
[2018-06-21 15:44] LABS: URINE LEUKOCYTES-REFLEX 2+ (Negative); URINE NITRITE-REFLEX POSITIVE (Negative)
[2018-06-21 15:48] LABS: AMP/METHAMP POSITIVE (Negative); BARBITURATES Negative (Negative); BENZODIAZEPINES POSITIVE (Negative); COCAINE Negative (Negative); METHADONE Negative (Negative); OPIATES POSITIVE (Negative); PCP Negative (Negative)
[2018-06-21 15:58] LABS: BACTERIA-REFLEX >30 Many /HPF (None Seen); CASTS None Seen /LPF (None Seen); CRYSTALS None Seen /LPF (None Seen); MUCUS None Seen strn/LPF (None Seen); SQUAMOUS >10 Many /LPF (0-3); URINE RBC 3-10 Few /HPF (0-2); URINE WBC-REFLEX >25 Many /HPF (0-5); WBC CLUMPS Moderate (None Seen)
--- NOTE | 2018-06-21 15:58 | EKG ---
[address] [place] [address] ELECTROCARDIOGRAM REPORT Name: MARCELLA ZAVALA Room #: REG Mati#: [id number] ������������������ Admission: 06/21/18 ������������������ Attend Phys: Discharge: ������������������ Date of : 58 Report #: [id number] ����������������������������������������������������������������� [id number] THIS REPORT FOR: //name// [facility] ED Test Date: 2018-06-21 Test Time: 14:48:58 Pat Name: MARCELLA [place] Department: Room: Gender: F Photographer'S Model: PRATIMA : 1960 Requested By: Grecia Anderson Order Number: [id number] MD: Jamey Gomez Measurements Intervals Omega Rate: 95 P: 83 NV: 143 QRS: 82 QRSD: 92 T: 34 QT: 355 QTc: 447 Interpretive Statements Sinus rhythm Probable left atrial enlargement Low voltage, precordial leads Compared to ECG 04/23/2015 01:15:23 Low QRS voltage now present Sinus tachycardia no longer present Electronically Signed On 06-21-2018 15:58:19 DERMATOLOGY SALES REPRESENTATIVE by Jamey Gomez [email or web address] ��������������������������������������������� <ELECTRONICALLY SIGNED> ���������������������������������������� By: Jamey Gomez MD ��������������������������������������������� 06/21/18 1558 1448 1448 Jamey Gomez MD /[place]
[2018-06-21] MEDS ORDERED: KEFLEX500 M1 PO ×2 (17:43)
[2018-06-21 17:50] VITALS: BP 113/73
[2018-06-22] MEDS ORDERED: ROPINIROLE HCL0.5 MG PO ×2 (16:01)
== END 2018-06-21 17:53 | disposition left against medical advice (07) ==
LOC: ER 14:29 → EROBS 16:29 → ER 17:53
PROVIDERS: Student in an Organized Health Care Education/Training Program
DX: N39.0 Urinary tract infection, site not specified (principal); I95.9 Hypotension, unspecified; E86.0 Dehydration; F17.210 Nicotine dependence, cigarettes, uncomplicated; M32.9 Systemic lupus erythematosus, unspecified; M79.7 Fibromyalgia; M06.9 Rheumatoid arthritis, unspecified; G25.81 Restless legs syndrome; F41.9 Anxiety disorder, unspecified; F32.9 Major depressive disorder, single episode, unspecified; I73.9 Peripheral vascular disease, unspecified; M81.0 Age-related osteoporosis without current pathological fracture; I25.10 Atherosclerotic heart disease of native coronary artery without angina pectoris; J44.9 Chronic obstructive pulmonary disease, unspecified; I10 Essential (primary) hypertension; K21.9 Gastro-esophageal reflux disease without esophagitis; M19.90 Unspecified osteoarthritis, unspecified site; E11.9 Type 2 diabetes mellitus without complications; L40.9 Psoriasis, unspecified; Z95.5 Presence of coronary angioplasty implant and graft; Z88.6 Allergy status to analgesic agent; Z90.711 Acquired absence of uterus with remaining cervical stump; Z79.4 Long term (current) use of insulin; Z85.41 Personal history of malignant neoplasm of cervix uteri

== ENCOUNTER 2018-06-22 14:05 | Inpatient (IN) | payer OTHER ==
[~2018-06-22] VITALS: Ht 121.9 cm; Wt 54.4 kg
[~2018-06-22 14:05] MED LIST changes: +KEFLEX500 M1 PO; +PAIN PUMP; +PROTONIX40 M2 PO; +ZYPREXA 5 MG TAB5 MG PO
[2018-06-22 14:41] VITALS: BP 144/62
[2018-06-22 15:23] LABS: ABSOLUTE NEUTROPHILS 12.7 thou/uL (1.4-8.2); BASOPHILS 0.9 % (0.0-2.0); EOSINOPHILS 0.7 % (0.0-3.0); HEMATOCRIT 45.4 % (37.0-47.0); HEMOGLOBIN 14.8 gm/dL (12.0-15.0); LYMPHOCYTES 5.9 % (24.0-44.0); MCH 30.7 pg (26.0-34.0); MCHC 32.7 g/dL (28.0-37.0); MCV 93.9 fL (80.0-100.0); MONOCYTES 6.7 % (1.0-8.0); PLATELET COUNT 354 thou/uL (150-400); POLYS 85.8 % (36.0-66.0); RBC 4.83 mil/uL (4.20-5.00); RDW 15.4 % (10.5-14.5); WBC 14.7 thou/uL (4.0-11.0)
[2018-06-22 15:31] LABS: CALCIUM 9.2 mg/dL (8.5-10.1); CREATININE 0.9 mg/dL (0.6-1.0); POTASSIUM 3.8 mmol/L (3.5-5.1)
[2018-06-22 15:36] LABS: TOTAL BILIRUBIN 0.4 mg/dL (<0.1-1.0)
[2018-06-22] MEDS ORDERED: ROPINIROLE HCL0.5 MG PO ×2 (16:01)
[2018-06-22 17:31] LABS: URINE BILIRUBIN NEGATIVE (Negative); URINE BLOOD NEGATIVE (Negative); URINE CLARITY CLEAR; URINE COLOR YELLOW; URINE GLUCOSE-RANDOM* 2+ (Negative); URINE KETONES 2+ (Negative); URINE LEUKOCYTES-REFLEX 1+ (Negative); URINE NITRITE-REFLEX NEGATIVE (Negative); URINE PROTEIN (DIPSTICK) NEGATIVE (Negative); URINE SPECIFIC GRAVITY 1.025 (1.005-1.035); URINE UROBILINOGEN 0.2 E.U./dl (0.2-1.0)
[2018-06-22 17:41] LABS: BACTERIA-REFLEX None Seen /HPF (None Seen); CASTS None Seen /LPF (None Seen); CRYSTALS None Seen /LPF (None Seen); MUCUS 0-3 Light strn/LPF (None Seen); SQUAMOUS 0-3 Few /LPF (0-3); URINE RBC None Seen /HPF (0-2)
[2018-06-22 17:42] LABS: WBC CLUMPS Rare (None Seen)
[2018-06-22 23:36] VITALS: BP 104/58
[2018-06-23 05:18] LABS: ABSOLUTE NEUTROPHILS 8.2 thou/uL (1.4-8.2); BASOPHILS 0.4 % (0.0-2.0); HEMATOCRIT 42.1 % (37.0-47.0); HEMOGLOBIN 13.7 gm/dL (12.0-15.0); LYMPHOCYTES 9.7 % (24.0-44.0); MCH 30.6 pg (26.0-34.0); MCHC 32.5 g/dL (28.0-37.0); MCV 94.2 fL (80.0-100.0); MONOCYTES 1.1 % (1.0-8.0); PLATELET COUNT 355 thou/uL (150-400); POLYS 88.8 % (36.0-66.0); RBC 4.47 mil/uL (4.20-5.00); RDW 15.7 % (10.5-14.5); WBC 9.3 thou/uL (4.0-11.0)
[2018-06-23 05:35] LABS: CALCIUM 8.5 mg/dL (8.5-10.1); MAGNESIUM 1.7 mg/dL (1.8-2.4)
--- NOTE | 2018-06-23 06:32 | NUR ---
PT IN ED HOLDING AREA. ASSESSMENT CHARTED. PT IS RECEIVING BREATHING TX AND ABX. PT INSTRUCTED TO GIVE SPUTUM SAMPLE IF POSSIBLE. PAIN MEDICATION GIVEN FOR GENERALIZED LEG PAINS. CONTINUE WITH PLAN OF CARE.
[2018-06-23 14:53] VITALS: BP 156/72
[2018-06-23 15:20] VITALS: BP 156/72
[2018-06-23 15:50] VITALS: BP 156/72
[2018-06-23 16:45] VITALS: BP 122/66
--- NOTE | 2018-06-23 17:32 | NUR ---
PT ARRIVED FROM ER THIS AFTERNOON. ORDERS IMPLEMANTED, ADMISSION HX, ASSESSMENT COMPLETE. PHYSICIAN NOTIFED. PT RESTING COMFORTABLY.
[2018-06-23 19:55] VITALS: BP 129/65
[2018-06-24 00:08] LABS: GLYCOHEMOGLOBIN (HGB A1C) 9.1 % (4.8-5.6)
[2018-06-24 03:45] VITALS: BP 131/59
[2018-06-24 08:22] VITALS: BP 168/83
--- NOTE | 2018-06-24 13:44 | NUR ---
cm tried to visit with pt prior to but pt stated " come in"/nehal to knock at door, cm noted pt on phone offered to come back" ok"/pt. cm revisited with pt later, responded verbally to enter room noted pt on bsc and talking on mobile phone. will cont following as needed for dc need, will visit later. " no you need to talk with my sig other gunjan on speaker phone"/nehal. pt gave verbal consent to speak with gunjan or mary, have 2 sig other i am single, live in apartment ground floor. community based cg 3 hr day for 7 days week. cg sets up medication at home, do own insulin and check bs, have right foot that is , no feeling so can not drive any more. i am disabled. use home o2 2.5L at bedside and as needed. have btx. walker, care, bsc, shower chair, grab bars, i fall 2 days ago on ice. no past or current needs for drug or alcohol abuse needs. safe at home and have support."/nehal and gunjan. cm notified bedside nurse about question rt home medication on cream for yeast under her breast per nehal. noted pt saying while on phone call if they going to play then i will give them a show"/pt. dcp home
[2018-06-24 14:22] VITALS: BP 163/90
[2018-06-24 19:32] VITALS: BP 148/82
--- NOTE | 2018-06-24 19:59 | NUR ---
PATIENT VERY UPSET THIS AM STATING I NEED MY HOME MEDICATIONS. INSTRUCTED PATIENT THIS RN WILL CALL AND GET HOME MEDS RESTARTED WHICH I DID. PATIENT MUCH CALMER THIS AFTERNOON. MAIN COMPLAINT BURNING WITH URINATION AND RIGHT FOOT/LEG PAIN. MEDICATED WITH OXYCODONE AND HELPFUL. WALKING BOOT PROVIDED ORDERED BY ORTHOPEDICS. TOLERATING DIET WELL. CT OF RIGHT FOOT COMPLETED AND NEGATIVE FOR FRACTURE. MUCH EMOTIONAL SUPPORT GIVEN TODAY.
[2018-06-25 04:14] VITALS: BP 122/73
[2018-06-25 08:02] VITALS: BP 146/71
--- NOTE | 2018-06-25 10:07 | HC ---
[facility] [place] [address] CONSULTATION Name: MARCELLA ZAVALA Room #: 460-P [facility] M.R.#: [id number] Admission: 06/22/18 ������������������ Attend Phys: Onel Laura MD Discharge: ������������������ Date of : 58 Report #: [id number] THIS REPORT FOR: //name// CC: Onel Laura Mynor Box DATE OF SERVICE: 06/24/2018 INFECTIOUS DISEASE CONSULTATION CONSULTATION REQUESTED BY: Onel Laura MD. REASON FOR CONSULTATION: Pneumonia, UTI. HISTORY OF PRESENT ILLNESS: A 57-year-old white woman admitted through the Emergency Room with a 3-week history of pain, discomfort, numbness and occasional erythema right foot have done nothing about it. The patient also complaining of cough, shortness of breath. Some bladder discomfort. On admission, she is found hypotensive with bandemia. She is started on Zosyn and vancomycin. Today, she tells me, she is frustrated that is being told nothing about her medical issues. She is mainly complaining about the right foot that has a 3-week history of numbness, redness ____ pain and some swelling. ALLERGIES: ASPIRIN, FACIAL SWELLING. MEDICATIONS: The patient is currently on treatment with Zosyn 3.375 grams IV every 8 hours, vancomycin 500 mg IV every 12 hours, pantoprazole 40 mg p.o. daily, subcutaneous heparin 5000 units b.i.d., guaifenesin 1200 mg p.o. b.i.d., insulin lispro per sliding scale a.c. and at bedtime, ipratropium and albuterol inhalation treatments every 4 hours, p.r.n. glucose glucagon, p.r.n. fentanyl, p.r.n. acetaminophen and p.r.n. ondansetron. PAST MEDICAL HISTORY: 1. Chronic steroid use for question COPD versus lupus. 2. Previous urinary tract infection. 3. COPD. 4. Rheumatoid arthritis. 5. Fibromyalgia. 6. Seizure disorder possibly secondary to overuse and misuse of benzodiazepine. 7. Osteoporosis. 8. Hypertension. 9. Right renal artery stent. 10. History of lumbar spine fusion. 11. History pain pump placement. 12. Chronic back pain being addressed at the pain clinic by Dr. Jesus Gonzalez and Dr. Edilson Bhatti. [address] [address] CONSULTATION Name: MARCELLA ZAVALA Room #: 460-P [facility] IN M.R.#: [id number] Admission: 06/22/18 ������������������ Attend Phys: Onel Laura MD Discharge: ������������������ Date of : 58 Report #: [id number] SOCIAL HISTORY: See H and P, old record. FAMILY HISTORY: See H and P, old record. REVIEW OF SYSTEMS: As above. PHYSICAL EXAMINATION: GENERAL: Chronically ill-appearing woman. VITAL SIGNS: Temperature 97.3, pulse 94, respirations 19, BP 168/83. On admission, her blood pressure as low as 67/44. The patient's height 4 feet, weight 120 pounds. HEENMT: Pupils reactive. Mouth edentulous. NECK: Supple. LUNGS: Crackles, rhonchi, left lung base. HEART: S1, S2. No gallop. ABDOMEN: Soft, no masses or megaly. EXTREMITIES: With special attention to right foot revealed no point tenderness, no erythema, no swelling. No evidence of active infection. NEUROLOGIC: Grossly within normal limits. LABORATORY DATA: Sodium 142, potassium 5, CO2 of 27, BUN 8, creatinine 1, glucose 283. Magnesium 1.7 mg/dL. Albumin 2.4 and 3 g/dL. Lactic acid 2.3 on 06/22/2017. Drug screen of the urine revealed this to be positive for methamphetamine, benzodiazepines, opiates and marijuana. White blood cell count 14,900, hemoglobin 13.1 g/dL, platelets 305,000 with differential showing 52% segmented neutrophils, 13% bands, 23% lymphocytes, 10% monocytes on the date of admission. Repeat CBC on 06/23/2018 revealed the white blood cell count has normalized at 9300, the hemoglobin at 13.7 g/dL and white blood cell count differential revealed 88% segmented neutrophils. The hemoglobin A1c is significantly elevated at 9.1% with estimated average glucose of 214 mg/dL. The urinalysis on admission revealed positive nitrite. The microscopic exam revealed greater than 10 squamous epithelial cells, moderate wbc's in clumps, microscopic hematuria, pyuria and bacteriuria. MICROBIOLOGY DATA: One out of two blood cultures obtained on 06/21/2018 revealed gram-positive cocci, identification and sensitivity are pending. The urine culture revealed greater than 100,000 colonies of gram-negative rods, identification and sensitivity are pending. RADIOLOGY EVALUATION: An x-ray of the right foot reveals soft tissue swelling of the forefoot. There is a cortical thickening and periosteal thickening involving the third metatarsal diaphysis. This could represent healing stress fracture, osteomyelitis considered less likely. CT scan of the chest without intravenous contrast revealed prominent pericardial fat and potential pericardial lipoma and left lower lobe infiltrate, atelectasis, pneumonitis. CT [address] [address] CONSULTATION Name: MARCELLA ZAVALA Room #: 460-P [facility] IN .Francia.#: [id number] Admission: 06/22/18 ������������������ Attend Phys: Onel Laura MD Discharge: ������������������ Date of : 58 Report #: [id number] of the C-spine revealed no cervical fractures detected. CT scan of the head revealed no acute intracranial abnormalities. X-ray of the hip, no acute osseous abnormalities. X-ray of the knee revealed degenerative changes. Chest x-ray revealed right perihilar opacity and left basilar atelectasis, infiltrate. ASSESSMENT: 1. Possible left lower lobe pneumonia. 2. Possible urinary tract infection. 3. Leukocytosis and bandemia, improved and resolved. 4. Chronic pain syndrome. 5. Polypharmacy and polysubstance abuse. 6. Diabetes mellitus, uncontrolled. 7. Hypoalbuminemia. 8. Possible chronic obstructive pulmonary disease. 9. Question stress fracture, right foot. SUGGESTIONS: Recommend continued coverage with vancomycin and Zosyn as you are already doing, obtain MRSA screen by PCR, ESR and CRP, streamline antibiotic regimen, restart prednisone. Dr. Laura, thank you for requesting my suggestions. ��������������������������������������������� <ELECTRONICALLY SIGNED> ���������������������������������������� By: Reynadlo Gomez MD ��������������������������������������������� 06/25/18 1007 1035 1846 Reynaldo Gomez MD /nt
[2018-06-25] MEDS ORDERED: CEFUROXIME500 MG PO ×2 (14:18)
[2018-06-25] MEDS ORDERED: MUCINEX600 MG PO ×2 (14:18)
[2018-06-25] MEDS ORDERED: CLOTRIMAZOLE-BE15 GM TOP ×2 (14:18)
--- NOTE | 2018-06-25 15:33 | NUR ---
CARE TEAM INDICATED THAT PT IS MEDICALLY STABLE TO DISCHARGE HOME THIS DAY WITH NO NEEDS. NO OTHER CM INTERVENTION INDICATED AT THIS TIME. CASE CLOSED.
--- NOTE | 2018-06-25 16:15 | NUR ---
Assumed pt care this am, pt was very aggitated and angry about her care and wanting to go home to her sick significant other. Pt did express that she iw willing to go home against medical advice. Informed Dr. Rutherford and Dr. Rosales. Pt was able to walk to halls with pt using her boot on one foot d/t foot drop. Is currently using 3L of O2 via NC. implemented POC during the shift. Pt is now calmer, redness maddison her breast and pannus cleaned, dried and cream placed. DC instructions given, awaiting pickup driver.
[2018-06-25 16:19] VITALS: BP 146/71
== END 2018-06-25 17:11 | disposition home or self-care (01) | DRG 871 ==
LOC: ER 14:05 → 4W 15:18 → EROBS 15:18 → 4W 06-23 15:33
PROVIDERS: Emergency Medicine; Nurse Practitioner; ADMIT Internal Medicine
DX: A41.9 Sepsis, unspecified organism (principal); J96.21 Acute and chronic respiratory failure with hypoxia; J18.9 Pneumonia, unspecified organism; N39.0 Urinary tract infection, site not specified; L03.115 Cellulitis of right lower limb; J44.1 Chronic obstructive pulmonary disease with (acute) exacerbation; J98.11 Atelectasis; J44.0 Chronic obstructive pulmonary disease with (acute) lower respiratory infection; I10 Essential (primary) hypertension; E11.9 Type 2 diabetes mellitus without complications; M06.9 Rheumatoid arthritis, unspecified; G25.81 Restless legs syndrome; F41.9 Anxiety disorder, unspecified; F32.9 Major depressive disorder, single episode, unspecified; I73.9 Peripheral vascular disease, unspecified; M81.0 Age-related osteoporosis without current pathological fracture; I25.10 Atherosclerotic heart disease of native coronary artery without angina pectoris; K21.9 Gastro-esophageal reflux disease without esophagitis; M19.90 Unspecified osteoarthritis, unspecified site; S90.811A Abrasion, right foot, initial encounter; M32.9 Systemic lupus erythematosus, unspecified; G40.909 Epilepsy, unspecified, not intractable, without status epilepticus; F17.210 Nicotine dependence, cigarettes, uncomplicated; I95.9 Hypotension, unspecified; M54.9 Dorsalgia, unspecified; G89.4 Chronic pain syndrome; F19.10 Other psychoactive substance abuse, uncomplicated; Z90.711 Acquired absence of uterus with remaining cervical stump; Z95.820 Peripheral vascular angioplasty status with implants and grafts; Z95.5 Presence of coronary angioplasty implant and graft; Z85.41 Personal history of malignant neoplasm of cervix uteri; Z88.6 Allergy status to analgesic agent; Z79.52 Long term (current) use of systemic steroids; Z99.81 Dependence on supplemental oxygen; W18.39XA Other fall on same level, initial encounter; Y93.89 Activity, other specified; Y92.89 Other specified places as the place of occurrence of the external cause; Y99.8 Other external cause status
CPT/HCPCS: 10045

== ENCOUNTER → 2018-07-01 | Outpatient (CLI) | payer OTHER ==
[~2018-07-01] VITALS: Ht 149.9 cm; Wt 60.1 kg
[~2018-07-01] MED LIST changes: +CEFUROXIME500 MG PO; +CLOTRIMAZOLE-BE15 GM TOP; +MUCINEX600 MG PO; +ROPINIROLE HCL0.5 MG PO
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
[2018-07-01 12:26] VITALS: BP 156/83
--- NOTE | 2018-07-01 12:31 | NUR ---
Pain Clinic Assessment: 1. History of Osteoarthritis: Right Lower Extremity History of Rheumatoid Arthritis: N 2. Height: 4 ft. 11 in. 149.9 cm. Weight: 132.4 lb. oz. 60.056 kg. Patient's BMI: 26.7 3. Vital Signs: BP: 156/83 Pulse: 123 Resp: 18 Temp: 02 Sat: 92 ECG Mon: 4. Pain Intensity: 9-10 5. Fall Risk: Dizziness: N Needs help standing or walking: Y Fallen in the last 3 months: Y Fall risk comments: 6. Patient on Blood Thinner: None 7. History of Hypertension: Y 8. Opioid Therapy greater than 6 weeks: Y Opiate Contract Signed: 10/15/15 9. Risk Assessment Tool Provided: 4-MOD RISK 10. Functional Assessment Tool: 11. Recreational Drug Use: Never Drug Type: Tobacco Use: Current Every Day Smoker Tobacco Type: Cigarettes Amount or Packs/day: 7 CIGS DAY How Many Years: Alcohol Use: No Frequency: Quant:
== END | disposition home or self-care (01) ==
LOC: PAIN 07:00
DX: Z45.1 Encounter for adjustment and management of infusion pump (principal); G89.29 Other chronic pain; M54.5 Low back pain; M96.1 Postlaminectomy syndrome, not elsewhere classified; I10 Essential (primary) hypertension; I25.10 Atherosclerotic heart disease of native coronary artery without angina pectoris; J44.9 Chronic obstructive pulmonary disease, unspecified; M79.7 Fibromyalgia; M19.90 Unspecified osteoarthritis, unspecified site; F32.9 Major depressive disorder, single episode, unspecified; F17.210 Nicotine dependence, cigarettes, uncomplicated; M06.9 Rheumatoid arthritis, unspecified; F41.9 Anxiety disorder, unspecified; Z79.891 Long term (current) use of opiate analgesic; Z98.890 Other specified postprocedural states; Z79.899 Other long term (current) drug therapy; Z88.8 Allergy status to other drugs, medicaments and biological substances

== ENCOUNTER → 2018-09-06 | Outpatient (CLI) | payer OTHER ==
[~2018-09-06] VITALS: Ht 147.3 cm; Wt 53.5 kg
[~2018-09-06] MED LIST changes: +ESCITALOPRAM OX10 MG PO; +OLANZAPINE5 MG PO; +XANAX1 MG PO
--- NOTE | ~2018-09-06 | HPC ---
[facility] [address] [place] [address] PAIN MANAGEMENT CONSULTATION Name: MARCELLA ZAVALA Room #: REG Meena Jackson.#: [id number] Admission: 09/06/18 ������������������ Attend Phys: Jesus Gonzalez MD Discharge: ������������������ Date of : 58 Report #: [id number] THIS REPORT FOR: //name// CC: Mynor Gonzalez DATE OF SERVICE: 09/06/2018 Followup visit for refill of intrathecal infusion pump. The patient returns to Pain Clinic today for refill of intrathecal infusion pump. We no longer provide oral medications for her, providing only intrathecal medications. She was in the clinic today for 30 minutes for counseling from the nurses regarding her very challenging family history, which is discussed on her 07/01/2018 visit. I discussed this with her at some length as well. I do feel that she understands that she has options if she feels unsafe in her own home. PHYSICAL EXAMINATION: She is a cushingoid 57-year-old female, pleasant, cooperative and loquacious today. Her blood pressure is 185/90, heart rate 130, respirations 20. She is 4 feet 10 inches, 118 pounds, BMI is 24.7. She is able to move from sitting to standing position, but is a fall risk. She is on no blood thinners. She is treated for hypertension. She no longer is taking oral medications for pain from our clinic. She continues to smoke and was counseled. Denies use of alcohol. IMPRESSION: 1. Chronic intractable pain, multiple pain generators. 2. Chronic obstructive pulmonary disease. 3. Hypertension. 4. Failed back syndrome. 5. Coronary artery disease. 6. History of lupus. 7. Rheumatoid arthritis. 8. Fibromyalgia. 9. History of anxiety and depression. 10. Management of intrathecal infusion pump. 11. Likely history of drug abuse with possible evidence of drug testing showing methamphetamine and marijuana and random drug screen. PLAN: We will continue to refill her intrathecal infusion pump, but will not provide oral medications. She understands. PROCEDURE: Skin was prepped with ChloraPrep. Skin anesthetized and a 22-gauge non-coring needle advanced in the pump. Old medication removed and discarded. [address] [address] PAIN MANAGEMENT CONSULTATION Name: MARCELLA ZAVALA Room #: REG CL Manuel.#: [id number] Admission: 09/06/18 ������������������ Attend Phys: Jesus Gonzalez MD Discharge: ������������������ Date of : 58 Report #: [id number] Pump was refilled with hydromorphone, clonidine and bupivacaine and reprogramming session performed. Daily dose will be 7.8 mg per day of hydromorphone intrathecally along with clonidine 260 and bupivacaine 7.8 mg. Her next pump refill is scheduled for 11/12/2018. ��������������������������������������������� ���������������������������������������� By: ��������������������������������������������� [id number] Jesus Gonzalez MD /nt
[2018-09-06 14:10] VITALS: BP 185/90
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
== END | disposition home or self-care (01) ==
LOC: PAIN 06:46
DX: Z45.1 Encounter for adjustment and management of infusion pump (principal); G89.29 Other chronic pain; I10 Essential (primary) hypertension; M96.1 Postlaminectomy syndrome, not elsewhere classified; J44.9 Chronic obstructive pulmonary disease, unspecified; I25.10 Atherosclerotic heart disease of native coronary artery without angina pectoris; F17.210 Nicotine dependence, cigarettes, uncomplicated; M06.9 Rheumatoid arthritis, unspecified; M79.7 Fibromyalgia; Z79.891 Long term (current) use of opiate analgesic; Z98.890 Other specified postprocedural states; Z79.899 Other long term (current) drug therapy; Z88.8 Allergy status to other drugs, medicaments and biological substances; Z87.19 Personal history of other diseases of the digestive system

== ENCOUNTER → 2018-11-08 | Outpatient (CLI) | payer OTHER ==
[~2018-11-08] VITALS: Ht 149.9 cm; Wt 52.0 kg
--- NOTE | ~2018-11-08 | HPC ---
[facility] [place] [address] PAIN MANAGEMENT CONSULTATION Name: MARCELLA ZAVALA Room #: REG Meena Jackson.#: [id number] Admission: 11/08/18 ������������������ Attend Phys: Jesus Gonzalez MD Discharge: ������������������ Date of : 58 Report #: [id number] THIS REPORT FOR: //name// CC: [facility] physician/PCP Mynor Gonzalez DATE OF SERVICE: 11/08/2018 Followup visit for management of chronic intractable pain with intrathecal infusion pump. Refill of intrathecal pump. The patient returns to pain clinic today for refill of her pump. She was last seen less than 2 months ago. She reports that the medication is working adequately, although she would like a slight increase, I have agreed to a 10% increase in her pump medication. PHYSICAL EXAMINATION: GENERAL: This is a cushingoid 58-year-old pleasant, alert, oriented and talkative as usual. VITAL SIGNS: Her blood pressure 158/78, heart rate 114. LUNGS: Breath sounds are markedly decreased. CARDIAC: Rhythm is regular and rapid. ABDOMEN: Soft. Pump is in left lower quadrant. SPINE: She has tenderness across her lumbosacral segment. NEUROLOGIC: She walks with antalgic features. She has diffuse myofascial discomfort consistent with fibromyalgia. IMPRESSION: 1. Chronic intractable pain with multiple pain generators. 2. Chronic obstructive pulmonary disease. 3. Hypertension. 4. Failed back syndrome. 5. Fibromyalgia. 6. Rheumatoid arthritis. 7. History of anxiety and depression. 8. Coronary artery disease. 9. Management of intrathecal infusion pump. RECOMMENDATIONS: Continue infusion. We no longer provide oral medications for her after testing positive for methamphetamine and marijuana in a random drug screen. PROCEDURE: Skin was prepped with ChloraPrep and a 22-gauge non-coring needle advanced into the intrathecal pump. Old medication removed and discarded. She expected 3.1 and we retrieved 4.0 within the margin of error. Pump was refilled [facility] [address] [place] [address] PAIN MANAGEMENT CONSULTATION Name: MARCELLA ZAVALA Room #: REG [facility].#: [id number] Admission: 11/08/18 ������������������ Attend Phys: Jesus Gonzalez MD Discharge: ������������������ Date of : 58 Report #: [id number] with bupivacaine, hydromorphone and clonidine. Reprogramming session performed. Her next refill will now be scheduled for 01/08/2019. Programming information was provided to the patient for her own use and we will continue to see her as needed for pump management, but not for medication management going forward. ��������������������������������������������� ���������������������������������������� By: ��������������������������������������������� [id number] Jesus Gonzalez MD /nt
[2018-11-08 13:28] VITALS: BP 158/78
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
== END | disposition home or self-care (01) ==
LOC: PAIN 10:28
DX: Z45.1 Encounter for adjustment and management of infusion pump (principal); G89.29 Other chronic pain; J44.9 Chronic obstructive pulmonary disease, unspecified; I10 Essential (primary) hypertension; M79.7 Fibromyalgia; M06.9 Rheumatoid arthritis, unspecified; I25.10 Atherosclerotic heart disease of native coronary artery without angina pectoris; F32.9 Major depressive disorder, single episode, unspecified; F17.210 Nicotine dependence, cigarettes, uncomplicated; F41.9 Anxiety disorder, unspecified; Z98.890 Other specified postprocedural states; Z79.891 Long term (current) use of opiate analgesic; Z79.899 Other long term (current) drug therapy; Z87.19 Personal history of other diseases of the digestive system; Z88.8 Allergy status to other drugs, medicaments and biological substances

== ENCOUNTER → 2019-01-06 | Outpatient (CLI) | payer OTHER ==
[~2019-01-06] VITALS: Ht 149.9 cm; Wt 49.8 kg
--- NOTE | ~2019-01-06 | HPC ---
[facility] [place] [address] PAIN MANAGEMENT CONSULTATION Name: MARCELLA ZAVALA Room #: REG DERECK Jackson.#: [id number] Admission: 01/06/19 ������������������ Attend Phys: Jesus Gonzalez MD Discharge: ������������������ Date of : 58 Report #: [id number] THIS REPORT FOR: //name// CC: [facility] physician/PCP MOOK Gonzalez DATE OF SERVICE: 01/06/2019 Followup visit for chronic back pain with intrathecal pump management. The patient is here today for refill of her intrathecal infusion pump. She is no longer receiving medication from our clinic beyond the pump. The pump is infusing hydromorphone, bupivacaine and clonidine. She is getting along okay, but continues to complain of daily pain. This is typical for her. PQRS is completed. PQRS REVIEW: 1. History of osteoarthritis in the right lower extremity. 2. BMI of 22.2. 3. Vital signs: Blood pressure 151/71, heart rate 116, respirations 14, O2 sat is 97. 4. Pain intensity 10/10. 5. She is a fall risk and has fallen in the last several months. She is debilitated. 6. She is on no blood thinners. 7. History of hypertension, under treatment. All medications reviewed and reconciled. 8. She is no longer on opioids. 9. She has a risk for addiction scoring 7/10. 10. She is a current half a pack a day smoker. She was given information including reference to 1800, quit now. She denies use of alcohol. PHYSICAL EXAMINATION: VITAL SIGNS: As noted. She is moderately depressed. She moves independently from sitting to standing position. Her gait is antalgic. CHEST: Clear. CARDIAC: Rhythm is regular. ABDOMEN: Soft. Pump is in the left lower quadrant. It is in good position. MUSCULOSKELETAL: Examination of the spine reveals scar from previous decompressive laminectomy and placement of catheter. She has tenderness of the hips and knees bilaterally. Decreased range of motion, internal and external rotation. IMPRESSION: [facility] [address] [place] [address] PAIN MANAGEMENT CONSULTATION Name: MARCELLA ZAVALA Room #: REG [facility].#: [id number] Admission: 01/06/19 ������������������ Attend Phys: Jesus Gonzalez MD Discharge: ������������������ Date of : 58 Report #: [id number] 1. Chronic intractable back pain, status post decompressive laminectomy, post-laminectomy syndrome. 2. Osteoarthritis, multiple joints. 3. Management of intrathecal infusion pump under terms of written opioid agreement. I renewed her medications and refill the pump. There have been no changes in her programming. She has 51 months remaining on this pump. Her daily doses are hydromorphone 8.5, clonidine 283, bupivacaine 8.5. She was discharged after checking her programming information. She was given a copy and we will see her back in the clinic as needed. ��������������������������������������������� ���������������������������������������� By: ��������������������������������������������� [id number] Jesus Gonzalez MD /manda
[2019-01-06 12:59] VITALS: BP 151/71
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
== END | disposition home or self-care (01) ==
LOC: PAIN 06:47
DX: Z45.1 Encounter for adjustment and management of infusion pump (principal); G89.29 Other chronic pain; M96.1 Postlaminectomy syndrome, not elsewhere classified; M54.5 Low back pain; F17.210 Nicotine dependence, cigarettes, uncomplicated; M19.90 Unspecified osteoarthritis, unspecified site; Z98.890 Other specified postprocedural states; Z79.899 Other long term (current) drug therapy; Z79.891 Long term (current) use of opiate analgesic; I10 Essential (primary) hypertension

== ENCOUNTER → 2019-03-07 | Outpatient (CLI) | payer OTHER ==
[~2019-03-07] VITALS: Ht 149.9 cm; Wt 47.4 kg
--- NOTE | ~2019-03-07 | HPC ---
[facility] [address] [place] [address] PAIN MANAGEMENT CONSULTATION Name: MARCELLA ZAVALA Room #: REG DERECK Jackson.#: [id number] Admission: 03/07/19 Attend Phys: Jesus Gonzalez MD Discharge: Date of : 58 Report #: [id number] THIS REPORT FOR: //name// CC: [facility] physician/PCP Jesus Gonzalez DATE OF SERVICE: 03/07/2019 Followup visit for refill of intrathecal infusion pump. The patient returns to pain clinic today for refill of her intrathecal infusion pump. She is currently receiving an infusion of hydromorphone, bupivacaine and clonidine. It helps with her chronic pain. We have not taken her off of oral opioids. She says that she put an ice pick through her right thumb. She developed an infection and she is now on intravenous antibiotics. Trying to avoid osteoporosis and amputation. PQRS REVIEW: 1. History of osteoarthritis, right lower extremity, hip and knee. 2. BMI is 21.1, slightly down from last visit. 3. Blood pressure 152/56, heart rate 108. 4. Pain intensity 10/10. Much of this is psychosocial as well. She has a number of psychological stressors. 5. Generalized weakness, but has not fallen recently. She is now living in a subsidized apartment with a roommate and feels safe. 6. No blood thinning medication. 7. History of hypertension. 8. No longer taking opioid medications, she has a high risk of addiction. 9. Functional assessment score is 8/70. 10. She is an every day smoker. She was counseled and given information regarding programs to help with quit the use of tobacco. The influence of smoking on her wound healing was discussed as well as her pain. PROCEDURE: Refill and reprogramming intrathecal infusion pump. Skin was prepped with ChloraPrep and a 22-gauge non-coring needle advanced in the pump. Old medication removed and discarded per protocol. Pump was refilled with hydromorphone, bupivacaine and clonidine and a reprogramming session was performed. The medication early program information was then checked by myself and the nurse and copy was given to the patient. Her next refill is scheduled for 05/07/2019. [address] [address] PAIN MANAGEMENT CONSULTATION Name: MARCELLA ZAVALA [facility] [id number] Admission: 03/07/19 Attend Phys: Jesus Gonzalez MD Discharge: Date of : 58 Report #: [id number] Followup visit planned as needed at that time. By: [id number] Jesus Gonzalez MD /nt
[2019-03-07 13:31] VITALS: BP 152/56
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
== END | disposition home or self-care (01) ==
LOC: PAIN 06:58
DX: Z45.1 Encounter for adjustment and management of infusion pump (principal); I10 Essential (primary) hypertension; F17.210 Nicotine dependence, cigarettes, uncomplicated; Z79.82 Long term (current) use of aspirin; Z79.899 Other long term (current) drug therapy; Z88.8 Allergy status to other drugs, medicaments and biological substances

== ENCOUNTER → 2019-05-05 | Outpatient (CLI) | payer OTHER ==
[~2019-05-05] VITALS: Ht 149.9 cm; Wt 46.7 kg
[~2019-05-05] MED LIST changes: +NORCO 7.5-3251 EACH PO
--- NOTE | ~2019-05-05 | HPC ---
Formerly [facility] [address] [address] PAIN MANAGEMENT CONSULTATION Name: MARCELLA ZAVALA Room #: REG DERECK Jackson.#: [id number] Admission: 05/05/19 Attend Phys: Jesus Gonzalez MD Discharge: Date of : 58 Report #: [id number] THIS REPORT FOR: //name// CC: SAMANTA physician/PCP Jesus Gonzalez DATE OF SERVICE: 05/05/2019 The patient returns today for refill of her intrathecal infusion pump. It is providing her with some decent pain relief, although she is still receiving some opioid medications outside of our clinic. Her pain today is mostly due to her osteoarthritis and chronic spondylitic low back pain. She reports that she is getting along okay. There have been no significant events over the course of the last month or two. This is a good interval for her. She seems to be reasonably stable and her pain scores are moderated. PQRS: Significant for bilateral osteoarthritis of the hips and knees, worse in the right hip. BMI is 20.8, blood pressure 164/73, heart rate 115, respirations 14, O2 sat 99. Pain intensity is the usual 10/10. She is a fall risk, but is able to ambulate with a cane. She has fallen once in the last 3 months. We discussed precautions in using her cane cautiously and carefully. She is on no blood thinning medications, but does have a history of hypertension and is treated. She has an opioid agreement signed in 2015, but I no longer provide medicine for her. She could not manage her medications and was at moderate risk of addiction with score 6/10. She continues to use tobacco on a daily basis one half pack. She was counseled. She denies use of tobacco or marijuana. PHYSICAL EXAMINATION: GENERAL: This is a somewhat debilitated, 58-year-old, who appears older than her stated age. __ smoking and medication. CHEST: Clear. CARDIAC: Rhythm is regular. MUSCULOSKELETAL: Examination of the spine reveals tenderness across her laminectomy scar. She has pain in her hips and legs. Decreased range of motion bilaterally in hips. IMPRESSION: 1. Chronic intractable back pain with multiple pain generators. 2. Chronic obstructive pulmonary disease. She continues to smoke and was counseled. 3. Hypertension. 4. Failed back syndrome. 5. Fibromyalgia. [address] [address] PAIN MANAGEMENT CONSULTATION Name: MARCELLA ZAVALA Room #: REG [facility] Manuel.#: [id number] Admission: 05/05/19 Attend Phys: Jesus Gonzalez MD Discharge: Date of : 58 Report #: [id number] 6. History of anxiety and depression. 7. Coronary artery disease. 8. Management of intrathecal infusion pump. PROCEDURE: After informed consent, the skin was prepped with ChloraPrep and a non-coring 22-gauge needle was advanced into the intrathecal pump. Old medication was removed and discarded per protocol. The pump was then refilled with a total of 39.5 mL of a solution containing clonidine, bupivacaine and hydromorphone. Reprogramming session was undertaken and her next refill is scheduled for 07/05/2019. No oral medications were ordered. Followup visit planned in June. By: [id number] 0050 Jesus Gonzalez MD /nt
[2019-05-05 13:17] VITALS: BP 164/73
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
== END | disposition home or self-care (01) ==
LOC: PAIN 06:47
DX: Z45.1 Encounter for adjustment and management of infusion pump (principal); M54.5 Low back pain; G89.29 Other chronic pain; I10 Essential (primary) hypertension; M19.90 Unspecified osteoarthritis, unspecified site; J44.9 Chronic obstructive pulmonary disease, unspecified; M96.1 Postlaminectomy syndrome, not elsewhere classified; M79.7 Fibromyalgia; F41.9 Anxiety disorder, unspecified; F17.210 Nicotine dependence, cigarettes, uncomplicated; Z98.890 Other specified postprocedural states; Z79.891 Long term (current) use of opiate analgesic; Z79.899 Other long term (current) drug therapy

== ENCOUNTER → 2019-06-23 | Outpatient (CLI) | payer OTHER ==
[~2019-06-23] VITALS: Ht 149.9 cm; Wt 46.7 kg
[~2019-06-23] MED LIST changes: +JANUVIA 50 MG T50 MG PO; +TOPROL XL25 MG PO
[2019-06-23 10:38] VITALS: BP 146/71
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
--- NOTE | 2019-06-24 07:38 | HPC ---
[facility] [address] [place] [address] PAIN MANAGEMENT CONSULTATION Name: MARCELLA ZAVALA Room #: REG [facility] M..#: [id number] Admission: 06/23/19 Attend Phys: Elvie Lomax Discharge: Date of : 58 Report #: [id number] THIS REPORT FOR: cc: KHRIS DOUGLAS Physician not on staff Elvie Lomax ~ DATE OF SERVICE: 06/23/2019 CHIEF COMPLAINT: Chronic spondylitic low back pain and osteoarthritis. HISTORY OF PRESENT ILLNESS: This is a 58-year-old female who returns to the pain clinic today for refill of her intrathecal pump. Today, she is reporting a pain score of 10/10 which is her usual number for pain intensity, located in her lower back, tailbone and her bilateral legs. It is a sharp, aching feeling. She reports it is worse with walking and activity, feels that intrathecal pump medication is beneficial. She is on no oral pain medications. The patient reports that she is going to undergo a possible fem-popliteal bypass tomorrow or at least having her stents replaced in her bilateral legs by Dr. Jackson at [facility], so she is here slightly early for her intrathecal pump refill today. The patient also reports she recently saw Dr. Steel, did have an MRI in March at [facility]. She has still not heard any of the results from their office, wondering if we had received any dictations. I explained to her that we had not. She feels that she has been having some shifting "in her back." ALLERGIES: ASPIRIN. CURRENT LIST OF MEDICATIONS: Januvia, Toprol, escitalopram, Xanax, ropinirole, Protonix, Glucophage, Levemir, albuterol, lisinopril, Pamelor, Combivent, Ambien, Lipitor, prednisone. PQRS: 1. She has osteoarthritis in her lower extremities. Denies any rheumatoid arthritis. 2. Height 4 feet 11 inches, weight is 103, BMI is 20. 3. Vital signs 146/71, pulse is 77, respirations 14, oxygen sat is 100. 4. Pain score is 10/10. 5. Denies dizziness. Does need assistance with walking, has a walker that she uses at all times. 6. The patient is not on any blood thinners, but does take medicine for hypertension. 7. Opioid therapy is greater than 6 weeks per her intrathecal pump. Risk [facility] [address] [place] [address] PAIN MANAGEMENT CONSULTATION Name: MARCELLA ZAVALA [id number] Admission: 06/23/19 Attend Phys: Elvie Lomax Discharge: Date of : 58 Report #: [id number] assessment tool is moderate. Functional assessment is . 8. Recreational drug use, she denies. She is a current smoker, half a pack of cigarettes a day. Denies any alcohol use. PHYSICAL EXAMINATION: GENERAL: This is an alert and orientated 58-year-old female who appears older than her stated age, placing her pain score 10/10 today. HEENT: Normocephalic, atraumatic. Extraocular eye muscles are intact. MUSCULOSKELETAL: She has tenderness in her lumbosacral region of her spine that radiates into her bilateral hips and legs. She is deconditioned in her lower extremities, rating with 4/5 strength is noted. She uses a walker at all times. She has a slow antalgic gait. left foot is warm and no areas of skin breakdown, right foot is cool, pale and no pulse palpated, without skin breakdown but outer 2 toes are slightly discolored. IMPRESSION: 1. Chronic intractable pain with multiple pain generators. 2. Chronic obstructive pulmonary disease, continues to smoke. 3. Failed back syndrome. 4. Fibromyalgia. 5. History of anxiety and depression. 6. Coronary artery disease with multiple stents. 7. Management of intrathecal pump. PROCEDURE: After informed consent, the patient was prepped with ChloraPrep and the site was numbed with 1 mL of lidocaine by Maegan Sheehan RN. Non-coring 22-gauge needle was advanced into the intrathecal pump. Old medication was removed and discarded of 7 mL expected 5.7. The patient was then refilled with a total of 20 mL of bupivacaine, clonidine and hydromorphone. Reprogramming session was completed. Her current rate is Dilaudid 8.5 mg per day, clonidine 283.7 mcg per day and bupivacaine 8.51 mg per day. The patient will return in followup for refill of her intrathecal pump by August 24. No oral medications were ordered. The patient encouraged to keep us abreast of her upcoming surgery. The patient was discharged with her family member. <ELECTRONICALLY SIGNED> By: Elvie Lomax 06/24/19 0738 1210 1221 Elvie Lomax /manda
== END | disposition home or self-care (01) ==
LOC: PAIN 06-22 14:10
DX: Z45.1 Encounter for adjustment and management of infusion pump (principal); M47.896 Other spondylosis, lumbar region; M54.5 Low back pain; G89.29 Other chronic pain; I25.10 Atherosclerotic heart disease of native coronary artery without angina pectoris; J44.9 Chronic obstructive pulmonary disease, unspecified; M79.7 Fibromyalgia; F41.9 Anxiety disorder, unspecified; F32.9 Major depressive disorder, single episode, unspecified; M96.1 Postlaminectomy syndrome, not elsewhere classified; F17.210 Nicotine dependence, cigarettes, uncomplicated; Z98.890 Other specified postprocedural states; Z79.899 Other long term (current) drug therapy; Z88.8 Allergy status to other drugs, medicaments and biological substances

== ENCOUNTER → 2019-08-25 | Outpatient (CLI) | payer OTHER ==
[~2019-08-25] VITALS: Ht 149.9 cm; Wt 49.0 kg
[~2019-08-25] MED LIST changes: +JARDIANCE25 MG PO; +OMEPRAZOLE40 MG PO; +REQUIP 0.25 M0.25 M1 PO
--- NOTE | ~2019-08-25 | HPC ---
[facility] [address] [place] [address] PAIN MANAGEMENT CONSULTATION Name: MARCELLA ZAVALA Room #: REG DERECK Jackson.#: [id number] Admission: 08/25/19 Attend Phys: Jesus Gonzalez MD Discharge: Date of : 58 Report #: [id number] THIS REPORT FOR: cc: KHRIS DOUGLAS Physician not on staff Jesus Gonzalez MD ~ CC: Physician staff Jesus DOUGLAS DATE OF SERVICE: 08/25/2019 Followup visit for chronic pain management with intrathecal pump therapy. Spondylitic low back pain and osteoarthritis. The patient is here today for refill of her pump. She is living with her significant other for 40 years in an apartment. She says that they are getting along okay during the COVID restriction, not much has changed in their life. She has not been out of the apartment much since March. Despite severe COPD end-stage, she continues to smoke as does she smells heavily of tobacco. She complains of pain in her back, but this is manageable with her intrathecal pump. She is grateful for the pain relief it provides. I no longer write for oral opioids for her and she has not asked for them since we discontinued them a year or two ago. PQRS review was completed. She has diffuse osteoarthritis. She complains of pain mostly in her hips and knees. BMI is 20.4. Blood pressure 160/75, heart rate 100, respirations 16, O2 sat 98. Pain 10/10. She is a fall risk, uses a cane. No falls recently. She is not on blood thinning medication. History of hypertension, under treatment. All medications have been reviewed and reconciled. She denies use of alcohol, but continues to use tobacco a half of pack to one pack a day and she was counseled. She denies use of marijuana. Recent medical history is significant for infection. She had surgery and developed a wound infection in the right groin. She has a wound VAC in place. Significant past medical history and comorbidities are noted, coronary artery disease, COPD, hypertension, insulin-dependent diabetes. She has severe osteoporosis, anxiety, depression, fibromyalgia. PHYSICAL EXAMINATION: GENERAL: Pleasant female. Multiple bruises are noted from her recent initiation of Xarelto. CHEST: Clear. CARDIAC: Rhythm is regular. [address] [address] PAIN MANAGEMENT CONSULTATION Name: MARCELLA ZAVALA Room #: REG [facility] Thorne#: [id number] Admission: 08/25/19 Attend Phys: Jesus Gonzalez MD Discharge: Date of : 58 Report #: [id number] MUSCULOSKELETAL: She has diffuse tenderness across the low back. Describes pain in both legs. Weakness is noted. She walks with a walker. Slow antalgic gait. IMPRESSION: 1. Chronic intractable back pain with spondylosis. 2. Diffuse osteoarthritis and myofascial pain with fibromyalgia. 3. Chronic obstructive pulmonary disease, continuing to smoke. She was counseled. 4. Failed back syndrome. 5. Anxiety, depression. 6. Coronary artery disease. 7. Management of intrathecal infusion pump. PROCEDURE: Skin was prepped with ChloraPrep. A 22-gauge non-coring needle advanced in the pump. Old medication removed and discarded. Pump refilled with a combination of bupivacaine, clonidine and hydromorphone. Reprogramming session was performed. Her next refill is not scheduled until September. She will be receiving hydromorphone 8.5, clonidine 283 and bupivacaine 8.5. Followup visit planned in 1-1/2 months. By: 1413 [id number] Jesus Gonzalez MD /nt
[2019-08-25 13:16] VITALS: BP 186/98
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
== END | disposition home or self-care (01) ==
LOC: PAIN 07:28
DX: Z45.1 Encounter for adjustment and management of infusion pump (principal); G89.29 Other chronic pain; M47.896 Other spondylosis, lumbar region; M79.7 Fibromyalgia; J44.9 Chronic obstructive pulmonary disease, unspecified; M96.1 Postlaminectomy syndrome, not elsewhere classified; M19.90 Unspecified osteoarthritis, unspecified site; I25.10 Atherosclerotic heart disease of native coronary artery without angina pectoris; F41.9 Anxiety disorder, unspecified; F32.9 Major depressive disorder, single episode, unspecified; Z98.890 Other specified postprocedural states; Z79.899 Other long term (current) drug therapy; Z79.891 Long term (current) use of opiate analgesic

== ENCOUNTER → 2019-10-20 | Outpatient (CLI) | payer OTHER ==
[~2019-10-20] VITALS: Ht 149.9 cm; Wt 48.6 kg
[~2019-10-20] MED LIST changes: +NORTRIPTYLINE H75 M1 PO
[2019-10-20 12:39] VITALS: BP 187/98
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
--- NOTE | 2019-10-21 15:51 | HPC ---
[facility] [place] [address] [place] [address] PAIN MANAGEMENT CONSULTATION Name: MARCELLA ZAVALA Room #: REG DERECK Jackson.#: [id number] Admission: 10/20/19 Attend Phys: Jesus Gonzalez MD Discharge: Date of : 58 Report #: [id number] THIS REPORT FOR: cc: KHRIS DOUGLAS Physician not on staff Jesus Gonzalez MD ~ CC: Physician staff Jesus DOUGLAS DATE OF SERVICE: 10/20/2019 Followup visit for chronic pain, multiple pain generators, diabetic neuropathy. Management of intrathecal infusion pump. The patient presents to pain clinic today in tears. Her pain is severe. Her intrathecal infusion pump provides her with a strong opioid medication, but is not adequate. She has neuropathic pain and is classically difficult to treat. She is having trouble with sleep at night. She has tried gabapentin and Lyrica, both are intolerable for her. She is already on nortriptyline, but at a dose of 50 mg. PAST MEDICAL HISTORY: Remarkable for lupus, fibromyalgia, rheumatoid arthritis, restless leg syndrome, anxiety, depression, history of insulin-dependent diabetes, seizures, peripheral vascular disease, osteoporosis, hypertension. She has had a prior lumbar fusion. She has had multiple back injections to the point where they are no longer effective. She does not want any part of injections at this point in time. MEDICATIONS: Reviewed and reconciled. There are no significant changes. PHYSICAL EXAMINATION: GENERAL: She is in tears today. She smells heavily of tobacco smoke. VITAL SIGNS: Blood pressure 187/98, heart rate 111, respirations 22, O2 sat 96, BMI is 21.6. MUSCULOSKELETAL: She moves independently from sitting to standing position. Her gait is slow and unsteady. She is a fall risk. CHEST: Reveals bilateral deep wheezing at the end of respiration at the bases and upper lung jose. CARDIAC: Rhythm is irregular. BACK: Tender across her lumbosacral segment. Straight leg raising bilaterally is positive. IMPRESSION: 1. Chronic intractable pain syndrome, multiple pain generators. [facility] [place] [place] [address] [place] [address] PAIN MANAGEMENT CONSULTATION Name: MARCELLA ZAVALA Room #: REG [facility].#: [id number] Admission: 10/20/19 Attend Phys: Jesus Gonzalez MD Discharge: Date of : 58 Report #: [id number] 2. Severe depression and anxiety along with insomnia. 3. Coronary artery disease. 4. Failed back syndrome. 5. Chronic obstructive pulmonary disease, continued smoking, was counseled. 6. Management of intrathecal infusion pump. PROCEDURE: Skin was prepped with ChloraPrep. A 22-gauge non-coring needle advanced in pump. Old medication removed and discarded. Pump was then refilled with combination of hydromorphone, bupivacaine and clonidine. Reprogramming session was performed with an increase of 7%. She will return to pain clinic for a refill. I have increased her amitriptyline from 50 to 75 mg. We discussed the importance of sleep in the management of chronic intractable pain. She will feel better if she is able to quit smoking, but I do not see this happening any time, sooner easily. <ELECTRONICALLY SIGNED> By: Jesus Gonzalez MD 10/21/19 1551 1323 1450 Jesus Gonzalez MD /nt
== END | disposition home or self-care (01) ==
LOC: PAIN 08:24
PROVIDERS: ATTEND Anesthesiology Pain Medicine
DX: Z45.1 Encounter for adjustment and management of infusion pump (principal); G89.4 Chronic pain syndrome; M96.1 Postlaminectomy syndrome, not elsewhere classified; I25.10 Atherosclerotic heart disease of native coronary artery without angina pectoris; J44.9 Chronic obstructive pulmonary disease, unspecified; F32.9 Major depressive disorder, single episode, unspecified; F41.9 Anxiety disorder, unspecified; G47.00 Insomnia, unspecified; F17.210 Nicotine dependence, cigarettes, uncomplicated; Z98.890 Other specified postprocedural states; Z79.899 Other long term (current) drug therapy; Z79.891 Long term (current) use of opiate analgesic

== ENCOUNTER → 2019-12-19 | Outpatient (CLI) | payer OTHER ==
[~2019-12-19] VITALS: Ht 149.9 cm; Wt 43.5 kg
[2019-12-19 13:35] VITALS: BP 149/79
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
--- NOTE | 2019-12-22 11:44 | HPC ---
[facility] [place] [address] [place] [address] PAIN MANAGEMENT CONSULTATION Name: MARCELLA ZAVALA Room #: REG DERECK Jackson.#: [id number] Admission: 12/19/19 Attend Phys: Jesus Gonzalez MD Discharge: Date of : 58 Report #: [id number] THIS REPORT FOR: cc: KHRIS DOUGLAS Physician not on staff Jesus Gonzalez MD ~ CC: Physician staff Jesus DOUGLAS DATE OF SERVICE: 12/19/2019 Followup visit for refill of intrathecal infusion pump. The patient of our clinic is here today with her daughter. This is the first time I met her daughter. She was very upfront with me at her first meeting and told me that she did not like wimp men; in fact, she went as far to tell me that she did not like any men. It was an inauspicious introduction. She was here bringing her mother in for her appointment. The patient has continued to complain of ongoing pain, although we had her on a combination of bupivacaine, clonidine and hydromorphone at fairly high dose for some time. Her daughter did bring up the point that we have not checked her catheter in some time. I think that is a reasonable thing to do. She feels that her mother is not getting relief. She is feeling horrible today, but there is a reason for that. She missed her appointment. Her pump alarm date is past. I believe that she is probably in some degree of withdrawal. We should be able to reverse that fairly quickly by reinitiating her pump medications and starting her back. She scores her pain as a 10/10. PQRS: Positive for pain in the low back and osteoarthritis and spondylosis. She is frail, BMI 19.3, blood pressure 149/79, heart rate is 139, respirations 18, O2 sat 95, pain intensity 10/10. She has had trouble getting up and standing and walking. She has not fallen however in the last 3 months. The patient is on blood thinner, Plavix, is on antihypertensives. All other medications were reviewed by the nurse and I reviewed them as well. They are on the electronic medical record. She is no longer taking opioids as we transitioned all her medicines to the intrathecal pump. She has a moderate risk assessment score at 6. Functional assessment score is not recent. She continues to smoke every day, was counseled. She denies use of alcohol. PHYSICAL EXAMINATION: GENERAL: She is curled up on her side in bed. She has multiple ecchymoses from her blood thinner. Her voice is timid. She can move independently from sitting to standing position, but she walks with a marked antalgic gait and needed a [facility] [place] [place] [address] [place] [address] PAIN MANAGEMENT CONSULTATION Name: MARCELLA ZAVALA Room #: REG DERECK Thorne#: [id number] Admission: 12/19/19 Attend Phys: Jesus Gonzalez MD Discharge: Date of : 58 Report #: [id number] wheelchair to leave the clinic. LUNGS: She has bilateral wheezing from smoking for 40 years. CARDIAC: Rhythm is regular. IMPRESSION: 1. Multiple pain generators including osteoarthritis, chronic back pain and spondylosis. 2. Severe depression and anxiety, chronic. 3. Coronary artery disease. 4. Chronic obstructive pulmonary disease. 5. Management of intrathecal infusion pump with reprogramming. PROCEDURE: Skin was prepped with ChloraPrep. A 22-gauge non-coring needle advanced in the pump. Old medication was removed and discarded. She had less than 2 mL in her pump. The pump was then refilled with 20 mL of bupivacaine, clonidine and hydromorphone and reprogramming session was performed. A copy of which was maintained for her record. The daughter and the patient left the clinic against medical advice before we can give them a copy and to schedule a pump for pump myelogram. I did draw a drawing and shared with the patient and her daughter, the catheter, how intrathecal narcotics work, and how we would go forward with a side port aspiration. Hopefully, we can get that scheduled, that is something that they feel is necessary based upon her poor pain response. The daughter did ask about female physicians and I have referred her to Dr. Teressa Juarez at [facility]. She is the only [place] based female physician that I know of currently who is managing and has placed intrathecal pumps. Did like a woman physician, she would be a nice alternative. Other options for a second opinion would be [facility] along with [facility]. I think both have done some [employer] pump management. Followup planned in ____ in January. <ELECTRONICALLY SIGNED> By: Jesus Gonzalez MD 12/22/19 1144 1457 1605 Jesus Gonzalez MD /nt
== END | disposition home or self-care (01) ==
LOC: PAIN 12-15 06:55
PROVIDERS: ATTEND Anesthesiology Pain Medicine
DX: Z45.1 Encounter for adjustment and management of infusion pump (principal); G89.29 Other chronic pain; M54.5 Low back pain; M47.896 Other spondylosis, lumbar region; J44.9 Chronic obstructive pulmonary disease, unspecified; I25.10 Atherosclerotic heart disease of native coronary artery without angina pectoris; F32.9 Major depressive disorder, single episode, unspecified; F41.9 Anxiety disorder, unspecified; F17.210 Nicotine dependence, cigarettes, uncomplicated; Z98.890 Other specified postprocedural states; Z79.899 Other long term (current) drug therapy; Z79.891 Long term (current) use of opiate analgesic; Z88.8 Allergy status to other drugs, medicaments and biological substances